=== PATIENT | male | born 1930 | race Caucasian/White ===

== ENCOUNTER 2017-10-18 16:26 | Inpatient (IN) | payer MEDICARE, OTHER ==
[~2017-10-18] VITALS: Ht 182.9 cm; Wt 114.5 kg
[2017-10-18] VITALS (7 sets, daily range): BP systolic 123–147; BP diastolic 63–79; PULSE 76–85; RESP 16–20; TEMP 98.7; O2SAT 95–99
[~2017-10-18 16:26] MED LIST: ALLO100T PO; ASPI1TAB69 PO; ATOR40TA16 PO; FURO1TAB60 PO; LISI10TA3 PO; METO50TA PO; TAMS5CAP PO
--- NOTE | 2017-10-18 16:59 | PD ---
HPI Chief Complaint: General Weakness Time Seen by Provider: 16:51 Travel History International Travel<30 days: No Contact w/Intl Traveler<30days: No Traveled to known affect area: No History of Present Illness HPI Apparently patient was previously admitted to [facility] for bradycardia down to the 30s, he was discharged and advised to decrease his metoprolol from 75 mg down to currently 25 mg. Patient was also started on Eliquis upon discharge. Apparently today earlier on about 2 or 3:00 in the afternoon his home health nurse was present and noticed that he is heart rate was dipping down to the 30s and he was expressing some complain of weakness and apparently left facial droop and left upper extremity weakness which has since fully resolved now... No known drug allergy Primary care physician is Dr. Xenia PARRISH Flexible Nanny is Dr. Jr Terry Patient's past medical history includes aortic valve replacement bovine, stents , congestive heart failure, hypertension, hypercholesterolemia Past surgical history includes right shoulder, cystoscopy, aortic valve replacement, tonsillectomy and adenoidectomy inguinal hernia repair PFSH Past Medical History Hx Anticoagulant Therapy: Yes (325MG ASA) Arthritis: Yes Autoimmune Disease: No Blood Disorders: No Heart Rhythm Problems: Yes Cancer: No Cardiovascular Problems: Yes (HTN; AORTIC VALVE REPLACEMENT; STENTS) High Cholesterol: Yes Congestive Heart Failure: Yes Diabetes: No Diminished Hearing: No Endocrine: No Glaucoma: No Genitourinary: Yes (CYSTOSCOPY) Hepatitis: No Hiatal Hernia: No Hypertension: Yes Immune Disorder: No Implanted Vascular Access Dvce: No Musculoskeletal: Yes Neurologic: No Psychiatric: No Reproductive: No Respiratory: No Immunizations Current: Yes Thyroid Disease: No Past Surgical History Abdominal Surgery: Yes (ING HERNIA & UMBILICAL HERNIA REP.) Body Medical Devices: AORTIC VALVE Cardiac Surgery: Yes (AVR, STENTS) Ear Surgery: No Endocrine Surgery: No Eye Surgery: No Genitourinary Surgery: Yes (CYSTOSCOPY) Gynecologic Surgery: No Joint Replacement: Yes Oral Surgery: Yes (TONSILLECTOMY AND ADENOIDS REMOVED) Pacemaker: No Thoracic Surgery: No Tonsillectomy: Yes Other Surgery: Yes Social History Alcohol Use: No Tobacco Use: Yes (QUIT LONG AGO (1973)) Substance Use: No Allergies-Medications (Allergen,Severity, Reaction): Coded Allergies: No Known Allergies (Verified , 11/02/15) Reported Meds & Prescriptions Reported Meds & Active Scripts Active Reported Remeron (Mirtazapine) 15 Mg Tab 15 Mg PO HS Melatonin 3 Mg Tab 3 Mg PO HS Hydrocodone-Acetamin 5-325 mg (Hydrocodone/Acetaminophen) 5 Mg-325 Mg Tablet 1 Tab PO Q4-6H PRN Demadex (Torsemide) 20 Mg Tab 20 Mg PO DAILY Potassium Chloride ER (Potassium Chloride) 10 Meq Tab 10 Meq PO BID Ferrous Sulfate 325 Mg (65 Mg Iron) Tablet 325 Mg PO DAILY Amaryl (Glimepiride) 1 Mg Tab 1 Mg PO DAILY Take with breakfast or first main meal Proscar (Finasteride) 5 Mg Tab 5 Mg PO DAILY Do not crush. Trazodone (Trazodone HCl) 150 Mg Tablet 150 Mg PO HS Tamsulosin (Tamsulosin HCl) 0.4 Mg Cap 0.4 Mg PO HS Metoprolol Tartrate 25 Mg Tab 25 Mg PO BID Eliquis (Apixaban) 5 Mg Tab 5 Mg PO BID Multiple Vitamin 1 Tab 1 Tab PO DAILY Aspirin 325 Mg Tab 325 Mg PO DAILY Tylenol (Acetaminophen) 325 Mg Tab 650 Mg PO Q4H PRN Allopurinol 100 Mg Tab 100 Mg PO DAILY Atorvastatin (Atorvastatin Calcium) 40 Mg Tab 40 Mg PO HS Review of Systems General / Constitutional: No: Fever Eyes: No: Visual changes HENT: Positive: Lightheadedness Cardiovascular: No: Chest Pain or Discomfort Respiratory: No: Shortness of Breath Gastrointestinal: No: Abdominal Pain Genitourinary: No: Dysuria Musculoskeletal: No: Pain Skin: No Rash Neurologic: Positive: Other (Left-sided facial droop) Psychiatric: No: Depression Endocrine: No: Polydipsia Hematologic/Lymphatic: No: Easy Bruising Physical Exam Narrative GENERAL: SKIN: Warm and dry. HEAD: Atraumatic. Normocephalic. EYES: Pupils equal and round. No scleral icterus. No injection or drainage. ENT: No nasal bleeding or discharge. Mucous membranes pink and moist. NECK: Trachea midline. No JVD. CARDIOVASCULAR: Irregular rate and rhythm. RESPIRATORY: No accessory muscle use. Clear to auscultation. Breath sounds equal bilaterally. GASTROINTESTINAL: Abdomen soft, non-tender, nondistended. MUSCULOSKELETAL: Extremities without clubbing, cyanosis, or edema. No obvious deformities. NEUROLOGICAL: Awake and alert. No obvious cranial nerve deficits. Motor grossly within normal limits. Five out of 5 muscle strength in the arms and legs. Normal speech. PSYCHIATRIC: Appropriate mood and affect; insight and judgment normal. Data Data Last Documented VS Vital Signs Date Time Temp Pulse Resp B/P (MAP) Pulse Ox O2 Delivery O2 Flow Rate FiO2 10/18/17 16:54 77 18 97 Nasal Cannula 2.00 10/18/17 16:38 98.7 147/65 (92) Orders Orders Electrocardiogram (10/18/17 ) Electrocardiogram (10/18/17 16:52) Prothrombin Time / Inr (Pt) (10/18/17 16:52) Act Partial Throm Time (Ptt) (10/18/17 16:52) Complete Blood Count With Diff (10/18/17 16:52) Comprehensive Metabolic Panel (10/18/17 16:52) Troponin I (10/18/17 16:52) Urinalysis - C+S If Indicated (10/18/17 16:52) Ct Brain W/O Iv Contrast(Rout) (10/18/17 16:52) Chest, Single Ap (10/18/17 16:52) Ecg Monitoring (10/18/17 16:52) Iv Access Insert/Monitor (10/18/17 16:52) Oximetry (10/18/17 16:52) Sodium Chloride 0.9% Flush (Ns Flush) (10/18/17 17:00) Labs Laboratory Tests Test 10/18/17 16:58 10/18/17 17:08 10/18/17 17:53 White Blood Count 5.9 TH/MM3 Red Blood Count 3.18 MIL/MM3 Hemoglobin 10.7 GM/DL Hematocrit 31.8 % Mean Corpuscular Volume 100.0 FL Mean Corpuscular Hemoglobin 33.5 PG Mean Corpuscular Hemoglobin Concent 33.5 % Red Cell Distribution Width 15.8 % Platelet Count 150 TH/MM3 Mean Platelet Volume 9.5 FL Neutrophils (%) (Auto) 65.0 % Lymphocytes (%) (Auto) 18.9 % Monocytes (%) (Auto) 11.9 % Eosinophils (%) (Auto) 3.7 % Basophils (%) (Auto) 0.5 % Neutrophils # (Auto) 3.8 TH/MM3 Lymphocytes # (Auto) 1.1 TH/MM3 Monocytes # (Auto) 0.7 TH/MM3 Eosinophils # (Auto) 0.2 TH/MM3 Basophils # (Auto) 0.0 TH/MM3 CBC Comment DIFF FINAL Differential Comment Prothrombin Time 12.6 SEC Prothromb Time International Ratio 1.2 RATIO Activated Partial Thromboplast Time 26.7 SEC Urine Color LIGHT-YELLOW Urine Turbidity CLEAR Urine pH 5.5 Urine Specific [place] 1.011 Urine Protein NEG mg/dL Urine Glucose (UA) NEG mg/dL Urine Ketones NEG mg/dL Urine Occult Blood NEG Urine Nitrite NEG Urine Bilirubin NEG Urine Urobilinogen LESS THAN 2.0 MG/DL Urine Leukocyte Esterase SMALL Urine RBC LESS THAN 1 /hpf Urine WBC 2 /hpf Urine Hyaline Casts 1 /lpf Microscopic Urinalysis Comment CATH-CULT NOT IND MDM Medical Decision Making Medical Screen Exam Complete: Yes Emergency Medical Condition: Yes Medical Record Reviewed: Yes Interpretation(s) EKG shows atrial fibrillation with PVCs, estimated rate 76, noted T-wave inversions in 1 and aVL however no ST elevation VT pattern noted Differential Diagnosis TIA versus CVA versus intracranial hemorrhage versus symptomatic bradycardia Narrative Course CBC does not show any evidence of leukocytosis, mild anemia of 10/32, normal platelet count, and no left shift. Coagulation profile is within normal limits Cath urinalysis is negative for any evidence of UTI Currently chemistry are pending. Also CT head is pending patient will be signed out to incoming physician in the ER pending CT chemistry and am recommending admission for TIA workup as well as chest pain rule out workup due to his episode of bradycardia. Chest x-ray is read as no acute disease by radiologist Diagnosis Primary Impression: TIA Admitting Information Admitting Physician Requests: Observation Ponce Hanks MD Oct 18, 2017 16:59
[2017-10-18] MEDS ORDERED: SODIUM CHLORIDE 0.9% FLUSH 10 ML FLUSH IVF PRN (17:00)
[2017-10-18] MEDS ORDERED: ASPI-183 PO (17:11)
[2017-10-18] MEDS ORDERED: PROS5TAB PO (17:11)
[2017-10-18] MEDS ORDERED: TYLE325T PO (17:11)
[2017-10-18] MEDS ORDERED: MELA3TAB52 PO (17:11)
[2017-10-18] MEDS ORDERED: METO25TA3 PO (17:11)
[2017-10-18] MEDS ORDERED: APIX5TAB PO (17:11)
[2017-10-18] MEDS ORDERED: GLIM1 PO (17:11)
[2017-10-18] MEDS ORDERED: FERR325T18 PO (17:11)
[2017-10-18] MEDS ORDERED: POTA10TA2 PO (17:11)
[2017-10-18] MEDS ORDERED: HYDR-3516 PO (17:11)
[2017-10-18] MEDS ORDERED: MULTTAB67 PO (17:11)
[2017-10-18] MEDS ORDERED: TORS1TAB12 PO (17:11)
[2017-10-18] MEDS ORDERED: TAMS0.4C4 PO (17:11)
[2017-10-18] MEDS ORDERED: TRAZ1TAB14 PO (17:11)
[2017-10-18] MEDS ORDERED: REME15TA PO (17:12)
[2017-10-18 17:15] LABS: AUTOMATED NEUTROPHIL # 3.8 TH/MM3 (1.8-7.7); BASOPHIL % 0.5 % (0.0-2.0); EOSINOPHIL # 0.2 TH/MM3 (0-0.4); EOSINOPHIL % 3.7 % (0.0-4.0); HEMATOCRIT 31.8 % (39.0-51.0); HEMOGLOBIN 10.7 GM/DL (13.0-17.0); LYMPH % 18.9 % (9.0-44.0); LYMPHOCYTE # 1.1 TH/MM3 (1.0-4.8); MEAN CORPUSCULAR HEMOGLOBIN 33.5 PG (27.0-34.0); MEAN CORPUSCULAR HGB CONC 33.5 % (32.0-36.0); MEAN PLATELET VOLUME 9.5 FL (7.0-11.0); MONO % 11.9 % (0.0-8.0); MONOCYTE # 0.7 TH/MM3 (0-0.9); PLATELET COUNT 150 TH/MM3 (150-450); RED BLOOD COUNT 3.18 MIL/MM3 (4.50-5.90); RED CELL DISTRIBUTION WIDTH 15.8 % (11.6-17.2); WHITE BLOOD COUNT 5.9 TH/MM3 (4.0-11.0)
[2017-10-18 17:31] LABS: BILIRUBIN, URINE NEG (NEG); BLOOD, URINE NEG (NEG); GLUCOSE,URINE NEG (NEG); HYALINE CAST, URINE 1 /lpf (RARE); KETONE, URINE NEG (NEG); NITRITE,URINE NEG (NEG); PH, URINE 5.5 (5.0-8.5); URINE COLOR LIGHT-YELLOW (YELLW/STRAW); URINE LEUKOCYTE ESTERASE SMALL (NEG)
--- NOTE | 2017-10-18 17:33 | RADRPT ---
EXAM DATE/TIME: 10/18/2017 17:21 [facility] COMPARISON: CHEST SINGLE AP, November 02, 2015, 13:57. INDICATIONS : Short of breath. Bradycardia. MEDICAL HISTORY : None. SURGICAL HISTORY : Coronary artery stent. Aortic valve replacement ENCOUNTER: Initial ACUITY: 1 day PAIN SCORE: 0/10 LOCATION: Bilateral chest. FINDINGS: Cardiomegaly and sternotomy wires are noted. There is no definite consolidation or effusion. High rid ing humeral heads are noted bilaterally with associated degenerative changes consistent with rotator cuff tears. CONCLUSION: No acute disease. Adonis Rubio MD on October 18, 2017 at 17:31 Board Certified Radiologist. This report was verified electronically.
[2017-10-18 17:36] LABS: INTERNATIONAL NORMALIZED RATIO 1.2 RATIO; PROTHROMBIN TIME - PATIENT 12.6 SEC (9.8-11.6)
[2017-10-18 18:41] LABS: ALBUMIN 3.3 GM/DL (3.4-5.0); ALT (GPT) 17 U/L (12-78); AST (GOT) 15 U/L (15-37); BICARBONATE 31.4 MEQ/L (21.0-32.0); BLOOD UREA NITROGEN 33 MG/DL (7-18); CALCIUM 8.9 MG/DL (8.5-10.1); CHLORIDE 105 MEQ/L (98-107); CREATININE 1.85 MG/DL (0.60-1.30); GLOMERULAR FILTRATION RATE 35 ML/MIN (>89); GLUCOSE,RANDOM 103 MG/DL (74-106); SODIUM (NA) 143 MEQ/L (136-145)
[2017-10-18 18:45] LABS: ALKALINE PHOSPHATASE 92 U/L (45-117); TOTAL BILIRUBIN ADULT 0.4 MG/DL (0.2-1.0); TOTAL PROTEIN 6.4 GM/DL (6.4-8.2); TROPONIN I 0.07 NG/ML (0.02-0.05)
--- NOTE | 2017-10-18 19:29 | RADRPT ---
EXAM DATE/TIME: 10/18/2017 18:44 [facility] COMPARISON: CT BRAIN W/O CONTRAST, June 25, 2016, 11:12. INDICATIONS : Slurred speech and bradycardia. RADIATION DOSE: 49.61 CTDIvol (mGy) MEDICAL HISTORY : Cardiovascular disease. Congestive heart failure. Hypertension. SURGICAL HISTORY : Cystoscopy, adenoids removed ENCOUNTER: Initial ACUITY: 1 day PAIN SCALE: 0/10 LOCATION: cranial TECHNIQUE: Multiple contiguous axial images were obtained of the head. Using automated exposure control and adj ustment of the mA and/or kV according to patient size, radiation dose was kept as low as reasonably a chievable to obtain optimal diagnostic quality images. DICOM format image data is available electro nically for review and comparison. FINDINGS: Remote right caudate lacunar infarct, atrophy and mild periventricular white matter disease again not ed. No fractures. Calcifications of the vertebral arteries and internal carotid arteries are noted. T here are no signs of acute infarct, hemorrhage, or mass. CONCLUSION: No significant change has occurred. Adonis Rubio MD on October 18, 2017 at 19:27 Board Certified Radiologist. This report was verified electronically.
--- NOTE | 2017-10-18 19:49 | PD ---
Data Data Last Documented VS Vital Signs Date Time Temp Pulse Resp B/P (MAP) Pulse Ox O2 Delivery O2 Flow Rate FiO2 10/18/17 19:39 76 20 142/71 (94) 95 Room Air 10/18/17 16:54 2.00 10/18/17 16:38 98.7 Orders Orders Electrocardiogram (10/18/17 ) Electrocardiogram (10/18/17 16:52) Prothrombin Time / Inr (Pt) (10/18/17 16:52) Act Partial Throm Time (Ptt) (10/18/17 16:52) Complete Blood Count With Diff (10/18/17 16:52) Comprehensive Metabolic Panel (10/18/17 16:52) Troponin I (10/18/17 16:52) Urinalysis - C+S If Indicated (10/18/17 16:52) Ct Brain W/O Iv Contrast(Rout) (10/18/17 16:52) Chest, Single Ap (10/18/17 16:52) Ecg Monitoring (10/18/17 16:52) Iv Access Insert/Monitor (10/18/17 16:52) Oximetry (10/18/17 16:52) Sodium Chloride 0.9% Flush (Ns Flush) (10/18/17 17:00) Admit Order (Ed Use Only) (10/18/17 19:46) Labs Laboratory Tests Test 10/18/17 16:58 10/18/17 17:08 10/18/17 17:53 White Blood Count 5.9 TH/MM3 Red Blood Count 3.18 MIL/MM3 Hemoglobin 10.7 GM/DL Hematocrit 31.8 % Mean Corpuscular Volume 100.0 FL Mean Corpuscular Hemoglobin 33.5 PG Mean Corpuscular Hemoglobin Concent 33.5 % Red Cell Distribution Width 15.8 % Platelet Count 150 TH/MM3 Mean Platelet Volume 9.5 FL Neutrophils (%) (Auto) 65.0 % Lymphocytes (%) (Auto) 18.9 % Monocytes (%) (Auto) 11.9 % Eosinophils (%) (Auto) 3.7 % Basophils (%) (Auto) 0.5 % Neutrophils # (Auto) 3.8 TH/MM3 Lymphocytes # (Auto) 1.1 TH/MM3 Monocytes # (Auto) 0.7 TH/MM3 Eosinophils # (Auto) 0.2 TH/MM3 Basophils # (Auto) 0.0 TH/MM3 CBC Comment DIFF FINAL Differential Comment Prothrombin Time 12.6 SEC Prothromb Time International Ratio 1.2 RATIO Activated Partial Thromboplast Time 26.7 SEC Urine Color LIGHT-YELLOW Urine Turbidity CLEAR Urine pH 5.5 Urine Specific [place] 1.011 Urine Protein NEG mg/dL Urine Glucose (UA) NEG mg/dL Urine Ketones NEG mg/dL Urine Occult Blood NEG Urine Nitrite NEG Urine Bilirubin NEG Urine Urobilinogen LESS THAN 2.0 MG/DL Urine Leukocyte Esterase SMALL Urine RBC LESS THAN 1 /hpf Urine WBC 2 /hpf Urine Hyaline Casts 1 /lpf Microscopic Urinalysis Comment CATH-CULT NOT IND Blood Urea Nitrogen 33 MG/DL Creatinine 1.85 MG/DL Random Glucose 103 MG/DL Total Protein 6.4 GM/DL Albumin 3.3 GM/DL Calcium Level 8.9 MG/DL Alkaline Phosphatase 92 U/L Aspartate Amino Transf (AST/SGOT) 15 U/L Alanine Aminotransferase (ALT/SGPT) 17 U/L Total Bilirubin 0.4 MG/DL Sodium Level 143 MEQ/L Potassium Level 4.8 MEQ/L Chloride Level 105 MEQ/L Carbon Dioxide Level 31.4 MEQ/L Anion Gap 7 MEQ/L Estimat Glomerular Filtration Rate 35 ML/MIN Troponin I 0.07 NG/ML MDM Supervised Visit with KADI: No Narrative Course The patient was initially evaluated by the previous provider and signed out to me at the beginning of my shift pending CT head and admission. He has no further details. Briefly this is an 87-year-old male with history of CHF, bovine aortic valve, hypertension, metoprolol, on Eliquis, brought in by indolence from home for an episode of bradycardia with a heart rate in the 30s with associated left facial droop and left arm weakness. By the time the patient arrived to the emergency department his heart rate was in the 60s-70s and his neuro deficits have resolved. Vital signs show heart rate 79, blood pressure 147/65, pulse ox 99% on 2 L nasal cannula, oral temperature 98.7F. CBC: WBC 5.9, hemoglobin 10.7, hematocrit 31.8, platelets 150. CMP is remarkable for BUN 33, creatinine 125, GFR 35 which is around his baseline. Troponin is 0.07. The patient denies chest pain. Chest x-ray shows no acute disease. CT head shows no significant change. Case discussed with hospitalist Dr. Paz who will admit the patient to her service for further cardiac monitoring for bradycardia as well as TIA workup. The patient and the patient's family were made aware of all findings and on my assessment he is sitting comfortably on a chair in no acute distress without any neuro deficits. Diagnosis Primary Impression: TIA Additional Impression: Bradycardia Admitting Information Admitting Physician Requests: Observation Serge Berry MD Oct 18, 2017 19:49
[2017-10-18] MEDS ORDERED: SENNOSIDES 8.6 MG TAB PO PRN (20:00)
[2017-10-18] MEDS ORDERED: MAGNESIUM HYDROXIDE SUSP 30 ML CUP PO PRN (20:00)
[2017-10-18] MEDS ORDERED: ACETAMINOPHEN 325 MG TAB PO PRN (20:00)
[2017-10-18] MEDS ORDERED: ACETAMINOPHEN/HYDROcodone 325 MG/5 MG TAB PO PRN (20:00)
[2017-10-18] MEDS ORDERED: LACTULOSE SYRUP 20 GM/30 ML CUP PO PRN (20:00)
[2017-10-18] MEDS ORDERED: ONDANSETRON HCL 4 MG/2 ML VIAL IVP PRN (20:00)
[2017-10-18] MEDS ORDERED: SODIUM CHLORIDE 0.9% FLUSH 10 ML FLUSH IV FLUSH PRN (20:00)
[2017-10-18] MEDS ORDERED: BISACODYL 10 MG SUPP RECTAL PRN (20:00)
[2017-10-18] MEDS ORDERED: MORPHINE SULFATE 2 MG/ML INJ IV PUSH PRN (20:00)
--- NOTE | 2017-10-18 20:01 | HHI.HP ---
[facility]-Staff Admission Diagnosis TIA, Sinus Bradycardia Diagnoses: Travel History International Travel<30 Days: No Contact w/Intl Traveler <30 Da: No Traveled to Known Affected Are: No Past Family Social History Allergies: Coded Allergies: No Known Allergies (Verified , 11/02/15) Physical Exam Vital Signs Vital Signs Date Time Temp Pulse Resp B/P (MAP) Pulse Ox O2 Delivery O2 Flow Rate FiO2 10/18/17 19:39 76 20 142/71 (94) 95 Room Air 10/18/17 16:54 77 18 97 Nasal Cannula 2.00 10/18/17 16:54 97 Nasal Cannula 2.00 10/18/17 16:38 98.7 79 18 147/65 (92) 99 Physical Exam GENERAL: This is a well-nourished, well-developed patient, in no apparent distress. SKIN: No rashes, ecchymoses or lesions. Cool and dry. HEAD: Atraumatic. Normocephalic. No temporal or scalp tenderness. EYES: Pupils equal round and reactive. Extraocular motions intact. No scleral icterus. No injection or drainage. ENT: Nose without bleeding, purulent drainage or septal hematoma. Throat without erythema, tonsillar hypertrophy or exudate. Uvula midline. Airway patent. NECK: Trachea midline. No JVD or lymphadenopathy. Supple, nontender, no meningeal signs. CARDIOVASCULAR: Regular rate and rhythm without murmurs, gallops, or rubs. RESPIRATORY: Clear to auscultation. Breath sounds equal bilaterally. No wheezes , rales, or rhonchi. GASTROINTESTINAL: Abdomen soft, non-tender, nondistended. No hepato-splenomegaly , or palpable masses. No guarding. MUSCULOSKELETAL: Extremities without clubbing, cyanosis, or edema. No joint tenderness, effusion, or edema noted. No calf tenderness. Negative Homans sign bilaterally. NEUROLOGICAL: Awake and alert. Cranial nerves II through XII intact. Motor and sensory grossly within normal limits. Five out of 5 muscle strength in all muscle groups. Normal speech. Laboratory Laboratory Tests Test 10/18/17 16:58 10/18/17 17:08 10/18/17 17:53 White Blood Count 5.9 Red Blood Count 3.18 Hemoglobin 10.7 Hematocrit 31.8 Mean Corpuscular Volume 100.0 Mean Corpuscular Hemoglobin 33.5 Mean Corpuscular Hemoglobin Concent 33.5 Red Cell Distribution Width 15.8 Platelet Count 150 Mean Platelet Volume 9.5 Neutrophils (%) (Auto) 65.0 Lymphocytes (%) (Auto) 18.9 Monocytes (%) (Auto) 11.9 Eosinophils (%) (Auto) 3.7 Basophils (%) (Auto) 0.5 Neutrophils # (Auto) 3.8 Lymphocytes # (Auto) 1.1 Monocytes # (Auto) 0.7 Eosinophils # (Auto) 0.2 Basophils # (Auto) 0.0 CBC Comment DIFF FINAL Differential Comment Prothrombin Time 12.6 Prothromb Time International Ratio 1.2 Activated Partial Thromboplast Time 26.7 Urine Color LIGHT-YELLOW Urine Turbidity CLEAR Urine pH 5.5 Urine Specific [place] 1.011 Urine Protein NEG Urine Glucose (UA) NEG Urine Ketones NEG Urine Occult Blood NEG Urine Nitrite NEG Urine Bilirubin NEG Urine Urobilinogen LESS THAN 2.0 Urine Leukocyte Esterase SMALL Urine RBC LESS THAN 1 Urine WBC 2 Urine Hyaline Casts 1 Microscopic Urinalysis Comment CATH-CULT NOT IND Blood Urea Nitrogen 33 Creatinine 1.85 Random Glucose 103 Total Protein 6.4 Albumin 3.3 Calcium Level 8.9 Alkaline Phosphatase 92 Aspartate Amino Transf (AST/SGOT) 15 Alanine Aminotransferase (ALT/SGPT) 17 Total Bilirubin 0.4 Sodium Level 143 Potassium Level 4.8 Chloride Level 105 Carbon Dioxide Level 31.4 Anion Gap 7 Estimat Glomerular Filtration Rate 35 Troponin I 0.07 Result Diagram: 10/18/17 1658 10/18/17 1753 Caprini VTE Risk Assessment Caprini Risk Assessment Model Point Value = 1 Point Value = 2 Point Value = 3 Point Value = 5 Age 41-60 Minor surgery BMI > 25 kg/m2 Swollen legs Varicose veins or History of unexplained or recurrent spontaneous Oral contraceptives or hormone replacement Sepsis (< 1 month) Serious lung disease, including pneumonia (< 1 month) Abnormal pulmonary function Acute myocardial infarction Congestive heart failure (< 1 month) History of inflammatory bowel disease Medical patient at bed rest Age 61-74 Arthroscopic surgery Major open surgery (> 45 min) Laparoscopic surgery (> 45 min) Malignancy Confined to bed (> 72 hours) Immobilizing plaster cast Central venous access Age >= 75 History of VTE Family history of VTE Factor V Leiden Prothrombin [id number] Lupus anticoagulant Anticardiolipin antibodies Elevated serum homocysteine Heparin-induced thrombocytopenia Other congenital or acquired thrombophilia Stroke (< 1 month) Elective arthroplasty Hip, pelvis, or leg fracture Acute spinal cord injury (< 1 month) Prophylaxis Regimen Total Risk Factor Score Risk Level Prophylaxis Regimen 0-1 Low Early ambulation 2 Moderate Order ONE of the following: *Sequential Compression Device (SCD) *Heparin 5000 units SQ BID 3-4 Higher Order ONE of the following medications: *Heparin 5000 units SQ TID *Enoxaparin/Lovenox 40 mg SQ daily (WT < 150 kg, CrCl > 30 mL/min) *Enoxaparin/Lovenox 30 mg SQ daily (WT < 150 kg, CrCl > 10-29 mL/min) *Enoxaparin/Lovenox 30 mg SQ BID (WT < 150 kg, CrCl > 30 mL/min) AND/OR *Sequential Compression Device (SCD) 5 or more Highest Order ONE of the following medications: *Heparin 5000 units SQ TID (Preferred with Epidurals) *Enoxaparin/Lovenox 40 mg SQ daily (WT < 150 kg, CrCl > 30 mL/min) *Enoxaparin/Lovenox 30 mg SQ daily (WT < 150 kg, CrCl > 10-29 mL/min) *Enoxaparin/Lovenox 30 mg SQ BID (WT < 150 kg, CrCl > 30 mL/min) AND *Sequential Compression Device (SCD) Ashlie Paz MD Oct 18, 2017 20:01
[2017-10-18] MEDS: MELATONIN 5 MG TAB PO SCH (21:00)
[2017-10-18] MEDS: SODIUM CHLORIDE 0.9% FLUSH 10 ML FLUSH IV FLUSH SCH (21:08)
[2017-10-18] MEDS: TAMSULOSIN HCL 0.4 MG CAP PO SCH (21:09)
[2017-10-18] MEDS: DOCUSATE SODIUM 50 MG/SENNA 8.6 MG TAB PO SCH (21:09)
[2017-10-18] MEDS: ATORVASTATIN 40 MG TAB PO SCH (21:09)
[2017-10-18] MEDS: APIXABAN 5 MG TABLET PO SCH (21:09)
[2017-10-18] MEDS: MIRTAZAPINE 15 MG TAB PO SCH (21:09)
--- NOTE | 2017-10-18 21:17 | HHI.HP ---
[facility] Service [facility] Primary Care Physician Non-Staff Admission Diagnosis TIA, Sinus Bradycardia Diagnoses: (1) Bradycardia Diagnosis: Principal (2) TIA (transient ischemic attack) Diagnosis: Principal (3) Elevated troponin Diagnosis: Principal (4) CHF (congestive heart failure) Diagnosis: Principal (5) Renal insufficiency Diagnosis: Principal (6) DM (diabetes mellitus) Diagnosis: Principal Travel History International Travel<30 Days: No Contact w/Intl Traveler <30 Da: No Traveled to Known Affected Are: No History of Present Illness This is an 87-year-old male with a PMH of HTN, Hyperlipidemia, AVR, Afib on Eliquis, CHF (Echo 11/03/15 w/ EF 40-45%) and CAD who was referred to the ER by [facility] RN for bradycardia w/ HR 30's. Also reported to have episode of facial droop, slurred speech and generalized weakness, now completely resolved. [facility] for similar episode of bradycardia. Able to obtain records from which I reviewed personally. Follows w/ Dr. Terry, seen by Dr. Aguayo during that admission, had minimally elevated Trop 0.06, Echo 10/15/17 w/ EF 50-55%, bradycardia thought to be due to Metoprolol, dosage decreased from 75mg bid to 25mg bid. Family states that pt was seen yesterday by PCP, HR 40-50's and Metoprolol decreased further to 12.5mg bid. Today, noted to have HR 30's as above. No chest pain, SOB or cough. Does note worsening lower extremity edema bilaterally. On arrival, BP 147/65, HR 79, O2 sat 99% on RA, Afebrile. HR has remained in the 70s to 80s while in ER. CBC at baseline. Creatinine 1.85, producing 1.49 on 11/05/15. Troponin 0.07. INR 1.2. UA negative. CXR with no acute findings. CT Head negative. Review of Systems Except as stated in HPI: all other systems reviewed are Neg ROS: 14 point review of systems otherwise negative. Past Family Social History Past Medical History PMH: HTN, Hyperlipidemia, AVR, Afib on Eliquis, CHF (Echo 11/03/15 w/ EF 40-45% ) and CAD Past Surgical History PAST SURGICAL HISTORY: Inguinal Hernia Repair, Bovine Aortic Valve, Cardiac Stent, Cystoscopy, Joint Replacement, Tonsillectomy Allergies: Coded Allergies: No Known Allergies (Verified , 11/02/15) Family History PAST FAMILY HISTORY: Reviewed. No h/o DM or CAD Social History PAST SOCIAL HISTORY: Negative for alcohol, tobacco or drugs. Physical Exam Vital Signs Vital Signs Date Time Temp Pulse Resp B/P (MAP) Pulse Ox O2 Delivery O2 Flow Rate FiO2 10/18/17 20:32 85 18 134/79 (97) 95 Room Air 10/18/17 19:39 76 20 142/71 (94) 95 Room Air 10/18/17 16:54 77 18 97 Nasal Cannula 2.00 10/18/17 16:54 97 Nasal Cannula 2.00 10/18/17 16:38 98.7 79 18 147/65 (92) 99 Physical Exam PE: GENERAL: Very pleasant elderly white male in no acute distress. Family at bedside. HEENT: PERRLA, EOMI. No scleral icterus or conjunctival pallor. No lid lag or facial droop. CARDIOVASCULAR: Irregularly irregular, HR 70's. No obvious murmurs to auscultation. No chest tenderness to palpation. RESPIRATORY: No obvious rhonchi or wheezing. Clear to auscultation. Breath sounds equal bilaterally. GASTROINTESTINAL: Abdomen soft, non-tender, nondistended. BS normal. MUSCULOSKELETAL: Extremities without clubbing, cyanosis. +2-3 edema bilaterally. No obvious deformities. NEUROLOGICAL: Awake, alert and oriented x4. No focal neurologic deficits. Moving both upper and lower extremities spontaneously. Laboratory Laboratory Tests Test 10/18/17 16:58 10/18/17 17:08 10/18/17 17:53 White Blood Count 5.9 Red Blood Count 3.18 Hemoglobin 10.7 Hematocrit 31.8 Mean Corpuscular Volume 100.0 Mean Corpuscular Hemoglobin 33.5 Mean Corpuscular Hemoglobin Concent 33.5 Red Cell Distribution Width 15.8 Platelet Count 150 Mean Platelet Volume 9.5 Neutrophils (%) (Auto) 65.0 Lymphocytes (%) (Auto) 18.9 Monocytes (%) (Auto) 11.9 Eosinophils (%) (Auto) 3.7 Basophils (%) (Auto) 0.5 Neutrophils # (Auto) 3.8 Lymphocytes # (Auto) 1.1 Monocytes # (Auto) 0.7 Eosinophils # (Auto) 0.2 Basophils # (Auto) 0.0 CBC Comment DIFF FINAL Differential Comment Prothrombin Time 12.6 Prothromb Time International Ratio 1.2 Activated Partial Thromboplast Time 26.7 Urine Color LIGHT-YELLOW Urine Turbidity CLEAR Urine pH 5.5 Urine Specific [place] 1.011 Urine Protein NEG Urine Glucose (UA) NEG Urine Ketones NEG Urine Occult Blood NEG Urine Nitrite NEG Urine Bilirubin NEG Urine Urobilinogen LESS THAN 2.0 Urine Leukocyte Esterase SMALL Urine RBC LESS THAN 1 Urine WBC 2 Urine Hyaline Casts 1 Microscopic Urinalysis Comment CATH-CULT NOT IND Blood Urea Nitrogen 33 Creatinine 1.85 Random Glucose 103 Total Protein 6.4 Albumin 3.3 Calcium Level 8.9 Alkaline Phosphatase 92 Aspartate Amino Transf (AST/SGOT) 15 Alanine Aminotransferase (ALT/SGPT) 17 Total Bilirubin 0.4 Sodium Level 143 Potassium Level 4.8 Chloride Level 105 Carbon Dioxide Level 31.4 Anion Gap 7 Estimat Glomerular Filtration Rate 35 Troponin I 0.07 Result Diagram: 10/18/17 1658 10/18/17 1753 Caprini VTE Risk Assessment Caprini VTE Risk Assessment: Mod/High Risk (score >= 2) Caprini Risk Assessment Model Point Value = 1 Point Value = 2 Point Value = 3 Point Value = 5 Age 41-60 Minor surgery BMI > 25 kg/m2 Swollen legs Varicose veins or History of unexplained or recurrent spontaneous Oral contraceptives or hormone replacement Sepsis (< 1 month) Serious lung disease, including pneumonia (< 1 month) Abnormal pulmonary function Acute myocardial infarction Congestive heart failure (< 1 month) History of inflammatory bowel disease Medical patient at bed rest Age 61-74 Arthroscopic surgery Major open surgery (> 45 min) Laparoscopic surgery (> 45 min) Malignancy Confined to bed (> 72 hours) Immobilizing plaster cast Central venous access Age >= 75 History of VTE Family history of VTE Factor V Leiden Prothrombin [id number] Lupus anticoagulant Anticardiolipin antibodies Elevated serum homocysteine Heparin-induced thrombocytopenia Other congenital or acquired thrombophilia Stroke (< 1 month) Elective arthroplasty Hip, pelvis, or leg fracture Acute spinal cord injury (< 1 month) Prophylaxis Regimen Total Risk Factor Score Risk Level Prophylaxis Regimen 0-1 Low Early ambulation 2 Moderate Order ONE of the following: *Sequential Compression Device (SCD) *Heparin 5000 units SQ BID 3-4 Higher Order ONE of the following medications: *Heparin 5000 units SQ TID *Enoxaparin/Lovenox 40 mg SQ daily (WT < 150 kg, CrCl > 30 mL/min) *Enoxaparin/Lovenox 30 mg SQ daily (WT < 150 kg, CrCl > 10-29 mL/min) *Enoxaparin/Lovenox 30 mg SQ BID (WT < 150 kg, CrCl > 30 mL/min) AND/OR *Sequential Compression Device (SCD) 5 or more Highest Order ONE of the following medications: *Heparin 5000 units SQ TID (Preferred with Epidurals) *Enoxaparin/Lovenox 40 mg SQ daily (WT < 150 kg, CrCl > 30 mL/min) *Enoxaparin/Lovenox 30 mg SQ daily (WT < 150 kg, CrCl > 10-29 mL/min) *Enoxaparin/Lovenox 30 mg SQ BID (WT < 150 kg, CrCl > 30 mL/min) AND *Sequential Compression Device (SCD) Assessment and Plan Problem List: (1) Bradycardia ICD Code: R00.1 - Bradycardia, unspecified Status: Acute (2) TIA (transient ischemic attack) ICD Code: G45.9 - Transient cerebral ischemic attack, unspecified (3) CHF (congestive heart failure) ICD Code: I50.9 - Heart failure, unspecified Status: Acute (4) Elevated troponin ICD Code: R74.8 - Abnormal levels of other serum enzymes (5) Renal insufficiency ICD Code: N28.9 - Disorder of kidney and ureter, unspecified (6) DM (diabetes mellitus) ICD Code: E11.9 - Type 2 diabetes mellitus without complications Assessment and Plan A/P: 1. Bradycardia: A-fib w/ SVR/Bradycardia. Recurrent. [facility] for same, s/p eval by Dr. Aguayo, Metoprolol decreased from 75mg bid to 25mg bid, now on 12.5mg bid since yesterday w/ persistent bradycardia. Records obtained from [facility] and reviewed by me personally, Echo 10/14/17 w/ EF 50-55%. Admit to [facility], telemetry, check serial cardiac enzymes to r/o underlying ischemia as etiology. Follows w/ Dr. Terry, will consult for further evaluation/recommendations. 2. CHF: Acute on Chronic. Systolic/Diastolic. Echo 10/14/17 w/ EF 50-55%, improved from previous Echo 11/03/15 w/ EF 40-45%. +lower extremity edema. CXR w/ no acute findings, images reviewed by me. Monitor I/O. Resume home diuresis. Resume home 3. Elevated Trop: Trop 0.07, EKG w/ no acute ischemia. No c/o chest pain, possibly related to combination of Dysrhythmia and CHF. Trop 0.06 per review of labs from [facility] on 10/14/17. Check serial cardiac enzymes to eval for underlying ischemia. NTG/Morphine as needed however no chest pain. 4. TIA: transient facial droop/weakness, now completely resolved, likely secondary to episode of bradycardia w/ hypoperfusion, however r/o TIA. CT Head w/ no acute findings, images reviewed by me. Check MRI Brain. Neuro checks q4h. Consult Neurology as needed for further recommendations. Resume home ASA , Statin. 5. Renal Insufficiency: Acute on Chronic. Creatinine 1.85, previously 1.49 on 11/05/15. Caution with IVF in light of CHF. Repeat labs in a.m. 6. DM: Sliding scale with Accu-Cheks. 7. DVT Prophylaxis: On Eliquis 8. Social work for d/c planning as needed. 9. Case discussed w/ ER physician at length, labs/records/imaging from here and [facility] reviewed by me. Physician Certification 2 Midnight Certification Type: Admission for Inpatient Services Order for Inpatient Services The services are ordered in accordance with Medicare regulations or non- Medicare payer requirements, as applicable. In the case of services not specified as inpatient-only, they are appropriately provided as inpatient services in accordance with the 2-midnight benchmark. Estimated LOS (days): 2 days is the estimated time the patient will need to remain in the hospital, assuming treatment plan goals are met and no additional complications. Post-Hospital Plan: Not yet determined Ashlie Paz MD Oct 18, 2017 21:17
[2017-10-19] VITALS (25 sets, daily range): BP systolic 115–149; BP diastolic 73–89; PULSE 74–96; RESP 18–20; TEMP 97.5–98; O2SAT 20–97
[2017-10-19] MEDS: MELATONIN 5 MG TAB PO SCH ×2 (01:20→21:44)
[2017-10-19 08:26] LABS: AUTOMATED NEUTROPHIL # 4.3 TH/MM3 (1.8-7.7); BASOPHIL % 0.6 % (0.0-2.0); EOSINOPHIL # 0.2 TH/MM3 (0-0.4); EOSINOPHIL % 2.9 % (0.0-4.0); HEMATOCRIT 31.7 % (39.0-51.0); HEMOGLOBIN 10.6 GM/DL (13.0-17.0); LYMPH % 16.4 % (9.0-44.0); MEAN CELL VOLUME 100.2 FL (80.0-100.0); MEAN CORPUSCULAR HEMOGLOBIN 33.4 PG (27.0-34.0); MEAN CORPUSCULAR HGB CONC 33.3 % (32.0-36.0); MONO % 11.3 % (0.0-8.0); MONOCYTE # 0.7 TH/MM3 (0-0.9); NEUT % 68.8 % (16.0-70.0); PLATELET COUNT 152 TH/MM3 (150-450); RED BLOOD COUNT 3.17 MIL/MM3 (4.50-5.90); RED CELL DISTRIBUTION WIDTH 15.8 % (11.6-17.2); WHITE BLOOD COUNT 6.2 TH/MM3 (4.0-11.0)
[2017-10-19] MEDS: APIXABAN 5 MG TABLET PO SCH ×2 (08:38→21:46)
[2017-10-19] MEDS: TORSEMIDE 20 MG TAB PO SCH (08:39)
[2017-10-19] MEDS: FINASTERIDE 5 MG TAB PO SCH (08:39)
[2017-10-19] MEDS: MULTIVITAMIN TAB PO SCH (08:39)
[2017-10-19] MEDS: DOCUSATE SODIUM 50 MG/SENNA 8.6 MG TAB PO SCH ×2 (08:39→21:00)
[2017-10-19] MEDS: SODIUM CHLORIDE 0.9% FLUSH 10 ML FLUSH IV FLUSH SCH ×2 (08:40→21:47)
[2017-10-19 08:57] LABS: ALBUMIN 3.2 GM/DL (3.4-5.0); ALT (GPT) 17 U/L (12-78); AST (GOT) 17 U/L (15-37); BICARBONATE 28.3 MEQ/L (21.0-32.0); BLOOD UREA NITROGEN 30 MG/DL (7-18); CALCIUM 9.3 MG/DL (8.5-10.1); CHLORIDE 106 MEQ/L (98-107); CREATININE 1.43 MG/DL (0.60-1.30); GLOMERULAR FILTRATION RATE 47 ML/MIN (>89); GLUCOSE,RANDOM 165 MG/DL (74-106); SODIUM (NA) 141 MEQ/L (136-145)
[2017-10-19] MEDS ORDERED: ASPIRIN 325 MG TAB PO SCH (09:00)
[2017-10-19 09:01] LABS: ALKALINE PHOSPHATASE 88 U/L (45-117); TOTAL BILIRUBIN ADULT 0.7 MG/DL (0.2-1.0); TOTAL PROTEIN 6.5 GM/DL (6.4-8.2); TROPONIN I 0.07 NG/ML (0.02-0.05)
--- NOTE | 2017-10-19 10:38 | RADRPT ---
EXAM DATE/TIME: 10/19/2017 10:09 [facility] COMPARISON: No previous studies available for comparison. INDICATIONS : Slurred speech. MEDICAL HISTORY : Hypertension. Renal insufficiency. SURGICAL HISTORY : Rotator cuff, right. Umbilical hernia repair. ENCOUNTER: Initial ACUITY: 1 day PAIN SCORE: 0/10 LOCATION: cranial TECHNIQUE: Multiplanar, multisequence MRI of the brain was performed without contrast. FINDINGS: Marked periventricular white matter changes are noted with associated central and cortical atrophy. There are no extra-axial fluid collections appreciated. There is no restricted diffusion. There is no parenchymal hemorrhage Posterior fossa shows mild chronic ischemic changes as well. Midline structures are intact. There is no parenchymal hemorrhage Orbits and paranasal sinuses unremarkable. CONCLUSION: Marked periventricular white matter changes central and cortical atrophy, No restricted diffusion to suggest acute ischemic event. Artur Bacon MD FACR on October 19, 2017 at 10:35 Board Certified Radiologist. This report was verified electronically.
--- NOTE | 2017-10-19 10:44 | EKG ---
Date Performed: 10/18/2017 Time Performed: 16:40:46 PTAGE: 87 years EKG: ATRIAL FIBRILLATION WITH ABERRANT CONDUCTION OR VENTRICULAR PREMATURE COMPLEXES LEFT ANTERI OR FASCICULAR BLOCK INFERIOR MYOCARDIAL INFARCTION MODERATE T-WAVE ABNORMALITY, CONSIDER LATERAL ISCH EMIA ABNORMAL ECG NO PREVIOUS TRACING DOCTOR: David Giang Interpretating Date/Time 10/19/2017 10:43:14
--- NOTE | 2017-10-19 13:49 | MB ---
cc: Jr Terry MD DATE OF CONSULT: REASON FOR CONSULTATION: For evaluation of possible bradycardia and neuro status changes. HISTORY OF PRESENT ILLNESS: Reddy Gaspar is an 87-year-old man who I am consulted on because of some arrhythmias and some mental status changes. The patient is known to have heart disease. He underwent a bovine aortic valve replacement in 2007. He had a cardiac catheterization prior to that valve replacement and only had mild disease. He has a history of a circumflex marginal branch stent in 2005. He has chronic atrial fibrillation. He was recently hospitalized at [facility] after having some episodes where he turned pale, was somewhat unresponsive, and had a heart rate apparently only in the 30s. In the hospital, his beta-riki dose was reduced. He did not have any further bradycardia in the hospital. CT scan was unremarkable. Echo showed preserved LV function. Apparently he was home and physical therapy was working with him and he got very pale and mentally became "out of it." His son came over and noticed he was pale, he was too weak to be able to stand up on his own. It cleared up either before or right after he got to the ER and he no longer has any mental status changes. There is also a comment about him having a slow pulse rate. He is noted to have frequent PVCs with a pulse deficit between the pulse rate and the heart rate. Here in the hospital, he has had a couple episodes of nonsustained V-tach, but without any clear-cut symptoms during those episodes. Denies any chest pain, chest tightness, chest squeezing, or anything else that I can construe as angina. His troponin is minimally elevated and he has the runs of V-tach. Apparently he is short of breath, too, when he moves around. MEDICATIONS: Include allopurinol, 325 mg aspirin, atorvastatin 40 mg, Eliquis, glimepiride, metoprolol 25 b.i.d., torsemide, has been very low dose, tramadol and trazodone. PAST MEDICAL HISTORY: Includes aortic stenosis with bovine aortic valve replacement in 2007, he has carotid disease, status post right carotid endarterectomy, chronic stage III kidney disease, his creatinines have dropped below 1.5 here and when he was in the hospital at [facility], dyslipidemia, diabetes, micturition syncope in 2016, morbid obesity, spinal stenosis. PAST SURGICAL HISTORY: Includes last cath on 08/02/2008, a #25 Helio-Pemberton aortic valve replacement on 08/04/2008, 2.5 mm stent of the obtuse marginal branch 1 on 06/17/2006. SOCIAL HISTORY: He currently does not drink or smoke. FAMILY HISTORY: Positive for coronary disease. PHYSICAL EXAMINATION: Reveals an elderly but alert white male. VITAL SIGNS: Are charted. He is in AFib with a controlled ventricular rate. He is noted to have an 11-beat run of V-tach at 7:29 a.m. this morning and some irregular ventricular tachycardia rhythm at 5:30 a.m. HEENT: Unremarkable. NECK: Shows no JVD, no bruits. CHEST: Clear to auscultation. CARDIAC: Shows normal first and second heart sounds. Regular in rate and rhythm. He has a grade I/ systolic ejection murmur. There is no S3 gallop. ABDOMEN: Soft, nontender. No masses, organomegaly. EXTREMITIES: Reveal intact pulses. Only trace edema. NEUROLOGIC: He is awake and alert at the time I am seeing him. LABORATORY STUDIES: EKG demonstrates atrial fibrillation with PVCs. There is left anterior fascicular block. His BUN and creatinine were 33/1.85, has improved to 30/1.43. Troponin is 0.07, 0.09, and 0.07. Albumin is low at 3.2. Potassium level is normal. Hematocrit is 31.7. Chest x-ray is showing cardiomegaly with no signs of CHF. Brain MRI is showing marked white matter changes and cortical atrophy, but no evidence for CVA. IMPRESSION: 1. History of bovine aortic valve replacement with no signs of dysfunction. 2. History of frequent ventricular ectopy including short runs of ventricular tachycardia. He is not having signs and symptoms of ischemia, but the arrhythmias are a concern. 3. History of turning white and having his heart rate drop to 30s, some suggestion of possible vagal spells. RECOMMENDATIONS: I am going to check a stress test with a Lexiscan nuclear stress test to assess his coronary disease further. I have resumed his Eliquis 5 b.i.d. and his metoprolol 25 b.i.d. and I am reducing the aspirin dose to 81 mg from 325. Further therapy to be determined. MD MARCELA Avina/ANTHONY , 01:32 PM , 01:47 PM
--- NOTE | 2017-10-19 15:04 | HHI.PR ---
Subjective Remarks Patient seen this morning around 10:30 AM. Says he is feeling all right. Denies any chest pain or shortness of breath. Objective Vital Signs Date Time Temp Pulse Resp B/P (MAP) Pulse Ox O2 Delivery O2 Flow Rate FiO2 10/19/17 14:00 76 10/19/17 13:00 86 10/19/17 12:01 97.5 85 18 138/80 (99) 97 10/19/17 12:00 83 10/19/17 11:00 74 10/19/17 10:00 83 10/19/17 09:00 92 10/19/17 08:02 97.6 91 18 131/87 (102) 94 10/19/17 08:00 76 10/19/17 07:00 87 10/19/17 07:00 97.6 91 18 131/87 (102) 94 10/19/17 04:00 96 10/18/17 22:50 80 10/18/17 22:42 84 16 123/73 (90) 96 10/18/17 21:32 81 20 123/63 (83) 97 10/18/17 20:32 85 18 134/79 (97) 95 Room Air 10/18/17 19:39 76 20 142/71 (94) 95 Room Air 10/18/17 16:54 77 18 97 Nasal Cannula 2.00 10/18/17 16:54 97 Nasal Cannula 2.00 10/18/17 16:38 98.7 79 18 147/65 (92) 99 I/O 10/18/17 10/18/17 10/18/17 10/19/17 10/19/17 10/19/17 07:00 15:00 23:00 07:00 15:00 23:00 Intake Total 480 ml Output Total 275 ml Balance 205 ml Intake Oral 480 ml Output Urine Total 275 ml Result Diagram: 10/19/1772910/19/17 0730 Objective Remarks GENERAL: NAD. awake and alert SKIN: Warm and dry. HEAD: Normocephalic. EYES: No scleral icterus. No injection or drainage. NECK: Supple, trachea midline. No JVD. CARDIOVASCULAR: Regular rate and rhythm without murmurs, gallops, or rubs. RESPIRATORY: Breath sounds equal bilaterally. No accessory muscle use. GASTROINTESTINAL: Abdomen soft, non-tender, nondistended. MUSCULOSKELETAL: No cyanosis, or edema. BACK: Nontender without obvious deformity. No CVA tenderness. A/P Assessment and Plan // Bradycardia: A-fib w/ SVR/Bradycardia. Recurrent. Recent admit to [facility] 10/14-10/16/17 for same, s/p eval by Dr. Aguayo, Metoprolol decreased from 75mg bid to 25mg bid, now on 12.5mg bid since yesterday w/ persistent bradycardia. Records obtained from [facility] and reviewed by me personally, Echo 10/14/17 w/ EF 50-55%. Admit to [facility], telemetry, check serial cardiac enzymes to r/o underlying ischemia as etiology. Follows w/ Dr. Terry, will consult for further evaluation/recommendations. = Pending evaluation by cardiology. Appreciate assistance. Continue Eliquis, metoprolol. Pending stress test. //CHF: Acute on Chronic. Systolic/Diastolic. Echo 10/14/17 w/ EF 50-55%, improved from previous Echo 11/03/15 w/ EF 40-45%. +lower extremity edema. CXR w/ no acute findings, images reviewed by me. Monitor I/O. Resume home diuresis. Resume home = Cardiology following. Appreciate assistance. // Elevated Trop: Trop 0.07, EKG w/ no acute ischemia. No c/o chest pain, possibly related to combination of Dysrhythmia and CHF. Trop 0.06 per review of labs from [facility] on 10/14/17. Check serial cardiac enzymes to eval for underlying ischemia. NTG/Morphine as needed however no chest pain. = Cardiology following. Appreciate assistance. // TIA: transient facial droop/weakness, now completely resolved, likely secondary to episode of bradycardia w/ hypoperfusion, however r/o TIA. CT Head w/ no acute findings, images reviewed by me. Check MRI Brain. Neuro checks q4h. Consult Neurology as needed for further recommendations. Resume home ASA , Statin. = Symptoms have resolved. MRI with chronic changes. No acute findings. Will order orthostatic vital signs, carotid ultrasounds. Patient has been started on Eliquis as per cardiology. // Renal Insufficiency: Acute on Chronic. Creatinine 1.85, previously 1.49 on 11/05/15. Caution with IVF in light of CHF. Repeat labs in a.m. = Creatinine 1.4. Resolved. // DM: Sliding scale with Accu-Cheks. // DVT Prophylaxis: On Eliquis Discharge Planning Pending cardiology clearance. Stress test pending. Jose Florence MD Oct 19, 2017 15:04
--- NOTE | 2017-10-19 18:38 | RADRPT ---
EXAM DATE/TIME: 10/19/2017 17:23 [facility] COMPARISON: No previous studies available for comparison. EXTERNAL COMPARISON : [facility], CTA CAROTID ARTERIES W/3D PROCESSING, August 16, 2016 INDICATIONS : Transient ischemic attack. MEDICAL HISTORY : Congestive heart failure. Hypercholesterolemia. Hypertension. Anticoagulant therapy. Irregular heartb eat. Arthritis. Measles. Blood transfusion. SURGICAL HISTORY : Inguinal hernia repair. Umbilical hernia repair. Coronary artery stent. Cystoscopy. Right shoulder kuhn rgery. Bilateral hip replacement. Aortic valve replacement. ENCOUNTER: Initial ACUITY: 1 day PAIN SCORE: 0/10 LOCATION: Bilateral neck PEAK SYSTOLIC VELOCITIES (cm/sec): ICA/CCA RATIO: Right: 0.7 Left: 0.9 ICA: Right: 58.5 Left: 92.4 CCA: Right: 79.0 Left: 98.4 ECA: Right: 87.8 Left: 76.2 VERTEBRAL: Right: 53.0 antegrade Left: 69.5 antegrade Elevated flow velocities and ICA/CCA ratios have been found to correlate with increased degrees of vessel stenosis, calculated as percentage of diameter relative to a normal segment of distal ICA/CCA FINDINGS: RIGHT CAROTID: No significant stenosis is visualized. The waveforms are within normal limits. LEFT CAROTID: No significant stenosis is visualized. The waveforms are within normal limits. VERTEBRAL ARTERIES: Antegrade flow is seen in both vertebral arteries. MISCELLANEOUS: None. CONCLUSION: 1. No evidence for hemodynamically significant stenosis of either carotid artery. 2. Antegrade flow in the vertebral arteries identified. Adonis Rubio MD on October 19, 2017 at 18:36 Board Certified Radiologist. This report was verified electronically.
[2017-10-19] MEDS ORDERED: APIXABAN 5 MG TABLET PO SCH (21:00)
[2017-10-19] MEDS: TAMSULOSIN HCL 0.4 MG CAP PO SCH (21:45)
[2017-10-19] MEDS: METOPROLOL TARTRATE 25 MG TAB PO SCH (21:46)
[2017-10-19] MEDS: ATORVASTATIN 40 MG TAB PO SCH (21:46)
[2017-10-19] MEDS: MIRTAZAPINE 15 MG TAB PO SCH (21:46)
[2017-10-20] VITALS (22 sets, daily range): BP systolic 113–133; BP diastolic 55–79; PULSE 44–97; RESP 16–18; TEMP 96.5–98.6; O2SAT 92–96
[2017-10-20] MEDS: APIXABAN 5 MG TABLET PO SCH (09:00)
[2017-10-20] MEDS: FINASTERIDE 5 MG TAB PO SCH (09:24)
[2017-10-20] MEDS: TORSEMIDE 20 MG TAB PO SCH (09:25)
[2017-10-20] MEDS: DOCUSATE SODIUM 50 MG/SENNA 8.6 MG TAB PO SCH ×2 (09:28→21:32)
[2017-10-20] MEDS: METOPROLOL TARTRATE 25 MG TAB PO SCH (09:28)
[2017-10-20] MEDS: MULTIVITAMIN TAB PO SCH (09:28)
[2017-10-20] MEDS: ASPIRIN 81 MG CHEW TAB PO SCH (09:28)
[2017-10-20] MEDS: SODIUM CHLORIDE 0.9% FLUSH 10 ML FLUSH IV FLUSH SCH ×2 (09:40→21:32)
--- NOTE | 2017-10-20 10:07 | PD.CARD.PN ---
Subjective Subjective Remarks No complaints Objective Medications Current Medications Medications (Trade) Dose Ordered Sig/Terese Route Start Time Stop Time Status Last Admin (NS Flush) 2 ml UNSCH PRN IVF 10/18/17 17:00 (NS Flush) 2 ml UNSCH PRN IV FLUSH 10/18/17 20:00 (NS Flush) 2 ml BID IV FLUSH 10/18/17 21:00 10/20/17 09:40 (Zofran Inj) 4 mg Q6H PRN IVP 10/18/17 20:00 (Tylenol) 650 mg Q6H PRN PO 10/18/17 20:00 ([place] 5-325 Mg) 1 tab Q4H PRN PO 10/18/17 20:00 (Morphine Inj) 2 mg Q3H PRN IV PUSH 10/18/17 20:00 (Tammy-Colace) 1 tab BID PO 10/18/17 21:00 10/20/17 09:28 (Milk Of Magnesia Liq) 30 ml Q12H PRN PO 10/18/17 20:00 (Senokot) 17.2 mg Q12H PRN PO 10/18/17 20:00 (Dulcolax Supp) 10 mg DAILY PRN RECTAL 10/18/17 20:00 (Lactulose Liq) 30 ml DAILY PRN PO 10/18/17 20:00 (Eliquis) 5 mg BID PO 10/18/17 21:00 10/19/17 21:46 (Lipitor) 40 mg HS PO 10/18/17 21:00 10/19/17 21:46 (Proscar) 5 mg DAILY PO 10/19/17 09:00 10/20/17 09:24 (Remeron) 15 mg HS PO 10/18/17 21:00 10/19/17 21:46 (Flomax) 0.4 mg HS PO 10/18/17 21:00 10/19/17 21:45 (Demadex) 20 mg DAILY PO 10/19/17 09:00 10/20/17 09:25 (Melatonin) 2.5 mg HS PO 10/18/17 21:00 10/19/17 21:44 (Theragran) 1 tab DAILY PO 10/19/17 09:00 10/20/17 09:28 (Aspirin Chew) 81 mg DAILY PO 10/20/17 09:00 10/20/17 09:28 (Lopressor) 25 mg Q12HR PO 10/19/17 21:00 10/20/17 09:28 Vital Signs / I&O Vital Signs Date Time Temp Pulse Resp B/P (MAP) Pulse Ox O2 Delivery O2 Flow Rate FiO2 10/20/17 07:00 68 10/20/17 07:00 97.2 79 18 125/76 (92) 94 10/20/17 04:40 97 16 133/71 (91) 93 10/20/17 03:00 79 10/20/17 02:00 76 10/20/17 01:00 68 10/20/17 00:00 64 10/19/17 23:30 88 20 149/89 (109) 20 10/19/17 23:00 76 10/19/17 22:00 80 10/19/17 21:00 80 10/19/17 20:00 82 10/19/17 19:45 98.0 90 20 141/81 (101) 95 10/19/17 19:00 85 10/19/17 18:00 78 10/19/17 17:00 81 10/19/17 16:05 92 20 135/87 (103) 97 10/19/17 16:03 87 18 135/81 (99) 97 10/19/17 16:01 83 18 115/73 (87) 96 10/19/17 16:00 79 10/19/17 15:00 79 10/19/17 14:00 76 10/19/17 13:00 86 10/19/17 12:01 97.5 85 18 138/80 (99) 97 10/19/17 12:00 83 10/19/17 11:00 74 I/O 10/19/17 10/19/17 10/19/17 10/20/17 10/20/17 10/20/17 07:00 15:00 23:00 07:00 15:00 23:00 Intake Total 480 ml 980 ml 240 ml Output Total 275 ml 1200 ml 830 ml Balance 205 ml -220 ml -590 ml Intake Oral 480 ml 980 ml 240 ml Output Urine Total 275 ml 1200 ml 830 ml # Bowel Movements 0 Physical Exam Alert Chest clear CV S1S2 RRR 2/6 SERGIO Tele: frequent and complex ventricular arrythmias Ext Trace edema Imaging Last 48 hours Impressions Carotid Artery Ultrasound 10/19/17 0000 Signed Impressions: Service Date/Time: Thursday, October 19, 2017 17:23 - CONCLUSION: 1. No evidence for hemodynamically significant stenosis of either carotid artery. 2. Antegrade flow in the vertebral arteries identified. Adonis Rubio MD Brain MRI 10/19/17 0000 Signed Impressions: Service Date/Time: Thursday, October 19, 2017 10:09 - CONCLUSION: Marked periventricular white matter changes central and cortical atrophy, No restricted diffusion to suggest acute ischemic event. Artur Bacon MD FACR Head CT 10/18/17 1652 Signed Impressions: Service Date/Time: Wednesday, October 18, 2017 18:44 - CONCLUSION: No significant change has occurred. Adonis Rubio MD Chest X-Ray 10/18/17 1652 Signed Impressions: Service Date/Time: Wednesday, October 18, 2017 17:21 - CONCLUSION: No acute disease. Adonis Rubio MD Assessment and Plan Problem List: (1) Ventricular arrhythmia ICD Codes: I49.9 - Cardiac arrhythmia, unspecified Plan: Suspect this is cause of sx's. No LV dysfunction. No angina (2) Coronary artery disease ICD Codes: I25.10 - Atherosclerotic heart disease of [place] coronary artery without angina pectoris Plan: [place]ka-SPECT in progress (3) History of aortic valve replacement with bioprosthetic valve ICD Codes: Z95.3 - Presence of xenogenic heart valve Plan: Nl function (4) Elevated troponin ICD Codes: R74.8 - Abnormal levels of other serum enzymes Plan: Minimally elevated Assessment and Plan Rivka-SPECT in progress Jr Terry MD Oct 20, 2017 10:07
--- NOTE | 2017-10-20 11:27 | HHI.PR ---
Subjective Remarks Follow-up for DVT Patient has no complaints. He said that he is doing well. Denies any chest pain, shortness of breathing, potation, lightheadedness or dizziness. No acute events. Objective Vitals Vital Signs Date Time Temp Pulse Resp B/P (MAP) Pulse Ox O2 Delivery O2 Flow Rate FiO2 10/20/17 11:00 96.8 77 18 122/79 (93) 92 10/20/17 10:00 76 10/20/17 09:00 74 10/20/17 08:00 78 10/20/17 07:00 68 10/20/17 07:00 97.2 79 18 125/76 (92) 94 10/20/17 04:40 97 16 133/71 (91) 93 10/20/17 03:00 79 10/20/17 02:00 76 10/20/17 01:00 68 10/20/17 00:00 64 10/19/17 23:30 88 20 149/89 (109) 20 10/19/17 23:00 76 10/19/17 22:00 80 10/19/17 21:00 80 10/19/17 20:00 82 10/19/17 19:45 98.0 90 20 141/81 (101) 95 10/19/17 19:00 85 10/19/17 18:00 78 10/19/17 17:00 81 10/19/17 16:05 92 20 135/87 (103) 97 10/19/17 16:03 87 18 135/81 (99) 97 10/19/17 16:01 83 18 115/73 (87) 96 10/19/17 16:00 79 10/19/17 15:00 79 10/19/17 14:00 76 10/19/17 13:00 86 10/19/17 12:01 97.5 85 18 138/80 (99) 97 10/19/17 12:00 83 I/O 10/19/17 10/19/17 10/19/17 10/20/17 10/20/17 10/20/17 07:00 15:00 23:00 07:00 15:00 23:00 Intake Total 480 ml 980 ml 240 ml Output Total 275 ml 1200 ml 830 ml Balance 205 ml -220 ml -590 ml Intake Oral 480 ml 980 ml 240 ml Output Urine Total 275 ml 1200 ml 830 ml # Bowel Movements 0 Result Diagram: 10/19/17 0730 10/19/17 0730 Objective Remarks GENERAL: in NAD CARDIOVASCULAR: Regular rate and rhythm without murmurs, gallops, or rubs. RESPIRATORY: Breath sounds equal bilaterally. No accessory muscle use. GASTROINTESTINAL: Abdomen soft, non-tender, nondistended. MUSCULOSKELETAL: No cyanosis, or edema. BACK: Nontender without obvious deformity. No CVA tenderness. Medications and IVs Current Medications Sodium Chloride (NS Flush) 2 ml UNSCH PRN IVF FLUSH AFTER USING IV ACCESS; Start 10/18/17 at 17:00 Sodium Chloride (NS Flush) 2 ml UNSCH PRN IV FLUSH FLUSH AFTER USING IV ACCESS ; Start 10/18/17 at 20:00 Sodium Chloride (NS Flush) 2 ml BID IV FLUSH Last administered on 10/20/17at 09: 40; Start 10/18/17 at 21:00 Ondansetron HCl (Zofran Inj) 4 mg Q6H PRN IVP NAUSEA OR VOMITING; Start at 20:00 Acetaminophen (Tylenol) 650 mg Q6H PRN PO FEVER/PAIN SCALE 1 TO 2; Start at 20:00 Acetaminophen/ Hydrocodone Bitart ([place] 5-325 Mg) 1 tab Q4H PRN PO PAIN SCALE 3 TO 5; Start 10/18/17 at 20:00 Morphine Sulfate (Morphine Inj) 2 mg Q3H PRN IV PUSH Pain 6-10; Start 10/18/17 at 20:00 Senna/Docusate Sodium (Tammy-Colace) 1 tab BID PO Last administered on 10/20/17at 09:28; Start 10/18/17 at 21:00 Magnesium Hydroxide (Milk Of Magnesia Liq) 30 ml Q12H PRN PO Mild constipation ; Start 10/18/17 at 20:00 Sennosides (Senokot) 17.2 mg Q12H PRN PO Moderate constipation; Start 10/18/17 at 20:00 Bisacodyl (Dulcolax Supp) 10 mg DAILY PRN RECTAL SEVERE CONSITIPATION; Start at 20:00 Lactulose (Lactulose Liq) 30 ml DAILY PRN PO SEVERE CONSITIPATION; Start at 20:00 Apixaban (Eliquis) 5 mg BID PO Last administered on 10/19/17 21:46; Start at 21:00; Stop 10/20/17 at 10:01; Status DC Aspirin (Aspirin) 325 mg DAILY PO Last administered on 10/19/17 08:39; Start at 09:00; Stop 10/19/17 at 13:03; Status DC Atorvastatin Calcium (Lipitor) 40 mg HS PO Last administered on 10/19/17 21:46 ; Start 10/18/17 at 21:00 Finasteride (Proscar) 5 mg DAILY PO Last administered on 10/20/17 09:24; Start 10/19/17 at 09:00 Mirtazapine (Remeron) 15 mg HS PO Last administered on 10/19/17 21:46; Start at 21:00 Tamsulosin HCl (Flomax) 0.4 mg HS PO Last administered on 10/19/17 21:45; Start 10/18/17 at 21:00 Torsemide (Demadex) 20 mg DAILY PO Last administered on 10/20/17 09:25; Start 10/19/17 at 09:00 Melatonin (Melatonin) 2.5 mg HS PO Last administered on 10/19/17 21:44; Start 10/18/17 at 21:00 Multivitamins (Theragran) 1 tab DAILY PO Last administered on 10/20/17 09:28; Start 10/19/17 at 09:00 Apixaban (Eliquis) 5 mg BID PO ; Start 10/19/17 at 21:00; Stop 10/19/17 at 21:00; Status DC Aspirin (Aspirin Chew) 81 mg DAILY PO Last administered on 10/20/17 09:28; Start 10/20/17 at 09:00 Metoprolol Tartrate (Lopressor) 25 mg Q12HR PO Last administered on 10/20/17 09 :28; Start 10/19/17 at 21:00 A/P Problem List: (1) Bradycardia ICD Code: R00.1 - Bradycardia, unspecified Status: Acute (2) TIA (transient ischemic attack) ICD Code: G45.9 - Transient cerebral ischemic attack, unspecified (3) CHF (congestive heart failure) ICD Code: I50.9 - Heart failure, unspecified Status: Acute (4) Elevated troponin ICD Code: R74.8 - Abnormal levels of other serum enzymes (5) Renal insufficiency ICD Code: N28.9 - Disorder of kidney and ureter, unspecified (6) DM (diabetes mellitus) ICD Code: E11.9 - Type 2 diabetes mellitus without complications Assessment and Plan This is a 87-year-old male who presented with VT Ventricular arrhythmias -Paper Tube Cutter consulted. Being managed by restaurant crew person. Patient on metoprolol. Pending nuclear stress test before restaurant crew person can give further recommendations. A-fib w/ SVR/Bradycardia. -Initially on metoprolol but that was decreased. -Echo 10/14/17 w/ EF 50-55%. -Pending nuclear stress test today. CHF: Acute on Chronic. Systolic/Diastolic. - Echo 10/14/17 w/ EF 50-55%, improved from previous Echo 11/03/15 w/ EF 40-45%. +lower extremity edema. CXR w/ no acute findings, images reviewed by me. Monitor I/O. -Continue with home diuresing. Elevated Trop: Trop 0.07, EKG w/ no acute ischemia. No c/o chest pain, possibly related to combination of Dysrhythmia and CHF. Trop 0.06 per review of labs from [facility] on 10/14/17. -Troponins remained flat. -Patient will have a nuclear stress test. TIA: transient facial droop/weakness, now completely resolved - likely secondary to episode of bradycardia w/ hypoperfusion, however r/o TIA. CT Head w/ no acute findings. MRI of the brain shows no acute ischemia. Carotid ultrasound shows no significant stenosis. -Continue ASA, Statin. Renal Insufficiency: Acute on Chronic. -Creatinine 1.85, previously 1.49 on 11/05/15. Caution with IVF in light of CHF. Repeat labs in a.m. -Creatinine 1.4. Resolved. DM: Sliding scale with Accu-Cheks. DVT Prophylaxis: On Eliquis Discharge Planning Pending nuclear stress test will determine recommendations. Patient also will need clearance from his restaurant crew person. Yvette Gunderson MD Oct 20, 2017 11:27
[2017-10-20] MEDS ORDERED: ATROPINE SULFATE 1 MG/10 ML SYRINGE ONE (11:51)
[2017-10-20] MEDS ORDERED: EPINEPHrine HCL (1:10,000) 1 MG/10 ML SYRINGE ONE (11:52)
[2017-10-20] MEDS ORDERED: REGADENOSON INJ 0.4 MG/5 ML SYR ONE (12:06)
--- NOTE | 2017-10-20 14:09 | RADRPT ---
EXAM DATE/TIME: 10/19/2017 16:09 [place] COMPARISON: MYOCARDIAL PERF PHARM SPECT, GATED W/EF, November 04, 2015, 11:08. INDICATIONS : Elevated troponins and abnormal EKG. Coronary artery disease. DOSE: 30 mCi Tc99m Myoview at stress. 32.2 mCi Tc99m Myoview at rest. 0.4 mg Lexiscan STRESS SYMPTOMS: None. EJECTION FRACTION: 32% MEDICAL HISTORY : Hypertension. Congestive heart failure. A-Fib. SURGICAL HISTORY : Carotid endarterectomy. Umbilical hernia repair. Aortic valave. ENCOUNTER: Initial ACUITY: 1 day PAIN SCALE: 0/10 LOCATION: Substernal chest TECHNIQUE: The patient underwent pharmacologic stress with infusion of prescribed dose. Continuous ECG tracing was monitored during stress. Gated SPECT imaging was performed after stress and conventional SPECT i maging was performed at rest. The examination was performed on a SPECT/CT scanner, both attenuation and non-corrected datasets were reviewed. FINDINGS: The ejection fraction remains at 32% with global hypokinesis. The best perfused myocardium at stress is the anterior lateral wall. Myocardium is better perfused at stress in all projections. There is no redistribution to suggest stress-induced ischemia. with ischemia. CONCLUSION: Ejection fraction 30%. Negative for stress-induced ischemia RISK CATEGORY: High (>3% Annual Mortality Rate) Artur Bacon MD FACR on October 20, 2017 at 14:06 Board Certified Radiologist. This report was verified electronically.
[2017-10-20 15:35] LABS: AUTOMATED NEUTROPHIL # 3.1 TH/MM3 (1.8-7.7); BASOPHIL % 0.6 % (0.0-2.0); EOSINOPHIL # 0.2 TH/MM3 (0-0.4); EOSINOPHIL % 4.1 % (0.0-4.0); HEMOGLOBIN 10.3 GM/DL (13.0-17.0); LYMPH % 18.5 % (9.0-44.0); LYMPHOCYTE # 0.9 TH/MM3 (1.0-4.8); MEAN CELL VOLUME 99.6 FL (80.0-100.0); MEAN CORPUSCULAR HGB CONC 33.2 % (32.0-36.0); MEAN PLATELET VOLUME 8.6 FL (7.0-11.0); MONO % 13.3 % (0.0-8.0); MONOCYTE # 0.6 TH/MM3 (0-0.9); NEUT % 63.5 % (16.0-70.0); PLATELET COUNT 141 TH/MM3 (150-450); RED BLOOD COUNT 3.11 MIL/MM3 (4.50-5.90); RED CELL DISTRIBUTION WIDTH 15.7 % (11.6-17.2); WHITE BLOOD COUNT 4.8 TH/MM3 (4.0-11.0)
[2017-10-20] MEDS: MIRTAZAPINE 15 MG TAB PO SCH (21:31)
[2017-10-20] MEDS: ATORVASTATIN 40 MG TAB PO SCH (21:32)
[2017-10-20] MEDS: MELATONIN 5 MG TAB PO SCH (21:32)
[2017-10-20] MEDS: TAMSULOSIN HCL 0.4 MG CAP PO SCH (21:32)
[2017-10-21] VITALS (27 sets, daily range): BP systolic 99–155; BP diastolic 51–93; PULSE 58–86; RESP 16–20; TEMP 95.7–98.5; O2SAT 92–99
[2017-10-21 06:57] LABS: ALBUMIN 3.1 GM/DL (3.4-5.0); AST (GOT) 17 U/L (15-37); BICARBONATE 32.7 MEQ/L (21.0-32.0); BLOOD UREA NITROGEN 34 MG/DL (7-18); CALCIUM 8.9 MG/DL (8.5-10.1); CHLORIDE 105 MEQ/L (98-107); CREATININE 1.48 MG/DL (0.60-1.30); GLOMERULAR FILTRATION RATE 45 ML/MIN (>89); GLUCOSE,RANDOM 139 MG/DL (74-106); SODIUM (NA) 143 MEQ/L (136-145)
[2017-10-21 06:59] LABS: ALT (GPT) 18 U/L (12-78)
[2017-10-21 07:01] LABS: ALKALINE PHOSPHATASE 110 U/L (45-117); TOTAL BILIRUBIN ADULT 0.5 MG/DL (0.2-1.0); TOTAL PROTEIN 6.2 GM/DL (6.4-8.2)
[2017-10-21] MEDS: MULTIVITAMIN TAB PO SCH (09:01)
[2017-10-21] MEDS: ASPIRIN 81 MG CHEW TAB PO SCH (09:02)
[2017-10-21] MEDS: FINASTERIDE 5 MG TAB PO SCH (09:02)
[2017-10-21] MEDS: TORSEMIDE 20 MG TAB PO SCH (09:02)
[2017-10-21] MEDS: SODIUM CHLORIDE 0.9% FLUSH 10 ML FLUSH IV FLUSH SCH ×2 (09:03→20:47)
[2017-10-21] MEDS: DOCUSATE SODIUM 50 MG/SENNA 8.6 MG TAB PO SCH ×2 (09:03→20:47)
[2017-10-21] MEDS ORDERED: MIDAZOLAM HCL 2 MG/2 ML VIAL ONE (11:09)
[2017-10-21] MEDS ORDERED: VERAPAMIL HCL 5 MG/2 ML VIAL ONE (11:10)
[2017-10-21] MEDS ORDERED: NITROGLYCERIN INJ 5 ML ONE (11:10)
[2017-10-21] MEDS ORDERED: HEPARIN SODIUM - IV 10,000 UNITS/10 ML VIAL ONE (11:10)
[2017-10-21] MEDS ORDERED: SODIUM CHLOR 0.9% 1000 ML INJ 1,000 ML IV SCH (11:58)
[2017-10-21] MEDS ORDERED: MISC INFORMATION XX ONE (12:00)
[2017-10-21] MEDS ORDERED: BACITRACIN OINT 0.9 GM PKT TOP ONE (12:00)
[2017-10-21] MEDS ORDERED: SODIUM CHLORIDE 0.9% FLUSH 10 ML FLUSH IV FLUSH PRN (12:00)
--- NOTE | 2017-10-21 12:05 | CATHPROC ---
[facility] HIS Report Study Information Study Number Admission Scheduled Start Study Start [id number] Oct 18 2017 9:16PM 10/21/2017 Oct 21 2017 10:45AM [place] [facility] Cardiac Catheterization Admit Source Facility Department Emergency department [facility] - Yarn Polishing Machine Operator Physician and Clinical Staff Initial Jr Moncada Rv Detailer Dillan John,BETH Recorder Raphael Baxter,RT(R) Recorder Sarah Esteves,BETH Scrub Nyasia Wang,RT(R) (BS) Procedures Performed Procedure Location (Site) Vessel Name Coronary Angiograms LCA Left Coronary Coronary Angiograms RCA Right Coronary L Heart Cath Equipment Time Histology Specialist Description Size Mfg Part Number Used/Scraped TRANSDUCER, TRUWAVE [id number] 11:08 MORALES HOUSER * Used W/STOCKCOCK *[id number] *[id number] 11:08 MALLINCKRODT SYRINGE, ANGIOMAT 150ML 150ML *[id number] Used 2SUB [id number] 11:08 Buddy PACK, CCL CUSTOM * Used *[id number] 11:08 Buddy SUPPORT, ARTERIAL ADULT 33565 *[id number] Used [id number] 11:08 [employer]et PACER PEN, SKIN DUAL W/ RULER * Used *[id number] BAND, RADIAL COMPRESSION TR [id number] 12:03 [employer] MEDICAL 24CM Used SHORT 24 *[id number] BAND, RADIAL COMPRESSION TR [id number] 12:03 [employer] MEDICAL 24CM Used SHORT 24 *[id number] 11:08 [employer] WIRE, EXCHANGE 260CM 3MMJ 260CM Used *[id number] 11:08 NAMIC MANIFOLD, 4 PORT * Used *[id number] 11:08 NYCOMED OMNIPAQUE, 350 MG, 100ML 100ML [id number] Used [id number] 11:08 [employer] BLANKET,WARM AIR CCL * Used *[id number] 11:08 [employer] JELCO NEEDLE 4056 *[id number] Used CATHETER, FR5 OPTITORQUE [id number] 11:35 [employer] MEDICAL FR 5 Used RADIAL TIG 4.0 *[id number] SHEATH, FR6 TRANSRADIAL RM*[id number] 11:08 TER[employer] MEDICAL FR 6 Used SLENDER 10CM *[id number] History: Allergies Allergy Reaction No Known Allergies History: Risk Factors Family History of Hypertension Dyslipidemia Previous IN Previous Heart Failure Premature CAD Yes Yes No No No Prior Valve Prior PCI Prior CABG Surgery Yes No No Cerebrovascular Peripheral Artery Chronic Lung On Dialysis Diabetes Diabetes Therapy Disease Disease Disease No Yes No No Yes None History: Symptoms/Diagnosis Selection Items SOB History: Stress Tests Stress or Imaging Studies Performed Yes Standard Exercise Stress Test No Stress Echo No Stress Test SPECT Stress Test SPECT Result Yes Negative Stress Test CMR No Cardiac CTA Coronary Calcium Score No No History: Other Disease Selection Items CHF HTN Labs Hgb (g/dl) Hct (%) WBC (l/cumm) Platelets (thousands) 11.60-17.00 35.00-51.00 4.00-11.00 150.00-450.00 10.3 31 4.8 141 Glucose (mg/dl) BUN (mg/dl) Creatinine (mg/dl) BUN:Creatinine (1:x) 74.00-106.00 7.00-18.00 0.50-1.30 10.00-20.00 139 34 1.5 22.7 Na (meq/l) K (meq/l) 136.00-145.00 3.50-5.10 143 4.6 INR (PTT:PT) 0.90-1.10 1.2 CPK-MB (ng/ML) 0.50-3.60 Not Drawn Medication Medication Total Dose (Bolus/Oral) Medication Total Dosage/Unit 1% XYLOCAINE 5 mL RADIAL COCKTAIL 5 mL (Bolus) VERSED 1 mg Medications (Bolus/Oral) Medication Time Given Dosage/Unit Administered By Reason VERSED 10/21/2017 11:19:54 AM 1 mg Dillan John 1 mg VERSED given in lab by Dillan John RN in Left Wrist via Peripheral IV. Ordered by Tiki Terry. 1% XYLOCAINE 10/21/2017 11:20:19 AM 5 mL Jr Terry 5 mL 1% XYLOCAINE given in lab by Jr Terry in Right Wrist via Subcutaneous. Ordered by Shayan Terry. Ntg 200mcg Verapamil 2.5mg Heparin RADIAL COCKTAIL 10/21/2017 11:35:14 AM 5 mL (Bolus) Jr Terry 2500U 5 mL (Bolus) RADIAL COCKTAIL given in lab by Jr Terry in Right Radial via Radial. Using [Solutio n Name]. Ordered by Jr Terry. Reason: Ntg 200mcg Verapamil 2.5mg Heparin 2500U. Medication (Drip) Medication Time Given Dosage/Unit Concentration/Unit Diluent (ml) Solution IV Solutions 10/21/2017 11:04:43 AM 0 mL (IV) 500 NaCl .9 Patient arrived on IV Solutions given by Jr Terry in Right Wrist via Peripheral IV. Pump/Drip Fl ow = 20 ml/hr using NaCl .9. Ordered by Jr Terry. Initial Case Assessment Cardiovascular HR Rhythm NIBP Chest Pain 80 sr 142/85 0 Edema Present Skin color Skin None Normal Warm Dry Circulatory - Right Pulses Dorsalis Pedis Femoral Radial 2 2 2 Scale (0,1,2,3,4,d) Scale (0,1,2,3,4,d) Neurological State Oriented to time-place- Alert Moves all extremities person Respiration - General Respiration Rate SpO2 (%) O2 (lpm) (B/min) 18 96 0 Final Case Assessment Cardiovascular HR Rhythm NIBP Chest Pain 70 NSR 119/72 0 Edema Present Skin color Skin Mild Normal Warm Dry Circulatory - Right Pulses Dorsalis Pedis Posterior Tibial Femoral Radial 1 1 1 1 Scale (0,1,2,3,4,d) Circulatory - Left Pulses Dorsalis Pedis Posterior Tibial Femoral Radial 1 1 1 Scale (0,1,2,3,4,d) Circulatory - Lower Extremities Color Lower Right Color Lower Left Normal Normal Neurological State Oriented to time-place- Alert Moves all extremities person Respiration - General Respiration Rate SpO2 (%) O2 (lpm) (B/min) 19 95 2 Chronological Log Time Study Chronological Log 10:49:41 Patient arrived via Bed. Positive Allens test performed by Raphael Baxter. 10:49:43 Patient Name, D.O.B, / Armband Verified By R.N. 10:49:45 Consent signed by the physician and the patient and verified by the Yarn Polishing Machine Operator staff. 10:49:46 Pre-op and post- op instructions given; patient acknowledges understanding of instructions. 11:03:57 Verbal Stimulation=2 Physical Stimulation=2 Airway=2 Respiration=2 TOTAL=8. (0=absent, 1=li mited, 2=present) 11:04:05 Presedation assessment performed by Yarn Polishing Machine Operator RN. 11:04:07 Patient has been NPO for More than 6Hrs. 11:04:09 Skin Breakdown-none present per patient 11:04:32 A # 20 IV was noted in the Wrist (right). Grade = 0 Patient arrived on IV Solutions given by Jr Terry in Right Wrist via Peripheral IV. Pump/D rip Flow = 20 ml/hr 11:04:43 using NaCl .9. Ordered by Jr Terry. 11:05:05 History and physical on the chart or being dictated. Vitals capture started with the following parameters, Patient=Adult, Interval=5 min, Initial Pr ugmgtl=694 mmHg, 11:05:07 Deflation Rate=5 mmHg, Cuff placed on Right Ankle 11:05:46 HR=72 bpm, SGMY=859/85 mmhg, SpO2=94.0 %, Resp=22 B/min, Jolly=2 Assessment: Initial Case, HR=80 BPM, Rhythm=sr, OVRV=427/85 mmhg, Chest Pain=0, Edema=None, Col or=Normal, Skin = Warm, Dry 11:05:54 Right Pulses: Pool Ped=2, Femoral=2, Radial=2 Neurological: State=Alert, Ox3, MCGRATH Respiration: Resp=18 B/min, SpO2=96 %, O2=0 lpm 11:06:00 Reference ECG taken 11:06:31 Right groin and right radial prepped with 2% chlorhexidine, and draped after a 3 min. waiti ng time. 11:10:45 HR=80 bpm, EMEZ=613/91 mmhg, SpO2=94.0 %, Resp=24 B/min, Pain=0, Ke=9, Jolly=2 11:11:13 2L NC applied by Dillan Dill RN 11:14:37 Pressure channel 1 zeroed. 11:15:48 HR=84 bpm, QMDU=189/82 mmhg, SpO2=97.0 %, Resp=20 B/min, Pain=0, Ke=9, Jolly=2 11:17:40 A # 20 IV was noted in the Wrist (left). Grade = 0 0.9NS infusing at KVO Time Out. Correct patient, correct procedure, correct physician, power injector not loaded with contrast with surgical 11:19:29 team present. Time Out Concurred by MD and individual staff in procedure. 11:19:54 1 mg VERSED given in lab by Dillan John, RN in Left Wrist via Peripheral IV. Ordered by Jr Terry. 11:20:18 Case Start 11:20:19 5 mL 1% XYLOCAINE given in lab by Jr Terry in Right Wrist via Subcutaneous. Ordered by Jr Terry. 11:20:47 HR=82 bpm, FRWZ=036/83 mmhg, SpO2=97.0 %, Resp=20 B/min, Pain=0, Ke=9, Jolly=2 11:25:48 HR=72 bpm, ZGKG=067/66 mmhg, SpO2=97.0 %, Resp=20 B/min, Pain=0, Ke=9, Jolly=2 11:30:47 HR=70 bpm, HAQU=311/71 mmhg, Resp=19 B/min, Pain=0, Ke=9, Jolly=2 11:33:21 Access site was Radial Artery. 5 mL (Bolus) RADIAL COCKTAIL given in lab by Jr Terry in Right Radial via Radial. Using [S olution Name]. 11:35:14 Ordered by Jr Terry. Reason: Ntg 200mcg Verapamil 2.5mg Heparin 2500U. 11:35:44 HR=72 bpm, KNQO=641/69 mmhg, SpO2=97.0 %, Resp=22 B/min, Pain=0, Ke=9, Jolly=2 A CATHETER, FR5 OPTITORQUE RADIAL TIG 4.0 FR 5 was advanced over a wire. OMNIPAQUE, 350 MG, 100 ML 100ML 11:36:37 was used for injections. Recorded Pressure: Ao, HR=68, Condition=Condition 1 11:37:51 (Aorta) Ao 95/56/73 11:38:49 The LCA was injected and visualized at various angles. OMNIPAQUE, 350 MG, 100ML 100ML used . 11:40:45 HR=76 bpm, TUBP=154/65 mmhg, SpO2=95.0 %, Resp=23 B/min, Pain=0, Ke=8, Jolly=2 After removing the current catheter a JR 4.0 INFINITI CATHETER FR 5 was advanced over a WIRE, E XCHANGE 260CM 11:45:07 3MMJ 260CM. 11:45:44 HR=81 bpm, GTBH=076/75 mmhg, SpO2=93.0 %, Resp=13 B/min, Pain=0, Ke=8, Jolly=2 11:46:45 The RCA was injected and visualized at various angles. OMNIPAQUE, 350 MG, 100ML 100ML used . 11:49:13 Catheter was removed 11:49:16 Wire removed 11:50:46 HR=73 bpm, WLBS=026/72 mmhg, Resp=16 B/min, Pain=0, Ke=8, Jolly=2 11:52:06 Case End Assessment: Final Case, HR=70 BPM, Rhythm=NSR, YTYW=344/72 mmhg, Chest Pain=0, Edema=Mild, [place] r=Normal, Skin = Warm, Dry Right Pulses: Pool Ped=1, Post Tib=1, Femoral=1, Radial=1 Left Pulses: Pool Ped=1, Post Tib=1, Femoral=1 11:52:49 Lower Right Extremities: Color=Normal Lower Left Extremities: Color=Normal Neurological: State=Alert, Ox3, MCGRATH Respiration: Resp=19 B/min, SpO2=95 %, O2=2 lpm Radial Compression Device Used. 15 mLs of air placed in BAND, RADIAL COMPRESSION TR SHORT 24 24 CM. Affected 11:54:09 hand 96 % O2 saturation. 11:54:38 CICU called. Spoke to Starr. 11:55:45 HR=75 bpm, FZTA=679/76 mmhg, SpO2=98.0 %, Resp=12 B/min, Pain=0, Ke=9, Jolly=2 11:55:59 Bedside Report will be given. 11:56:02 No case complications noted. 11:56:06 Cine recording checked. 11:56:13 Verbal Stimulation=2 Physical Stimulation=2 Airway=2 Respiration=2 TOTAL=8. (0=absent, 1=l imited, 2=present) 11:57:19 A Left Heart Cath was performed. 12:00:31 Patient moved to stretcher 12:01:16 YLRO=829/82 mmhg, Pain=0, Ke=9, Jolly=2 12:03:04 Vitals capture stopped. 12:05:03 Patient moved to stretcher End Study - Contrast Media Used In Study Contrast Total Opened (mL) Total Used (mL) Total Wasted (mL) Omnipaque 150 90 60 End Study - Maximum Contrast Load Max Contrast Load (mL) 376.4 End Study - Radiation Exposure Fluoro Time (minutes) 6.7 End Study - Patient Disposition Complications Transferred To Interventional Outcome No Telemetry Bed successful
[2017-10-21] MEDS ORDERED: IOHEXOL 350 MG/ML 100 ML BTL (for Cath Lab) OTHER ONE (12:14)
--- NOTE | 2017-10-21 12:22 | MA ---
cc: Jr Terry MD 10/21/2017 BRIEF HISTORY: Reddy Gaspar is an 87-year-old man who has had 2 episodes at home where he had become unresponsive, subsequently was admitted. He has been noted to have serious and complex ventricular arrhythmias. Nuclear stress test showed no ischemia but prior to an EP evaluation we need a definitely evaluation of his coronaries. DESCRIPTION OF PROCEDURE: The patient was brought to the cardiac label designer in the fasting state. The right groin and right wrist were prepped and draped in standard sterile fashion. Using 1% lidocaine for local anesthesia and a Jelco needle, access was obtained to the right radial artery and a Terumo Slender sheath placed. The left coronary was then imaging using a Westbrook catheter. There was severe tortuosity of the innominate artery but this was performed successfully. I could not get the Westbrook catheter in the right coronary artery and exchanged over a wire to a right Sully and was able to get selective angiograms of the right coronary artery. There was no need for revascularization. The catheter was removed. The sheath will be removed from the right wrist with a band placed. There were no complications. FINDINGS: 1. Hemodynamics: The aortic pressure was 95/56 with a mean of 73. 2. Coronary angiography: Left main appears normal. It trifurcates into the LAD, a large ramus branch and a circumflex vessel. The LAD and ramus branch only have slight irregularities. Circumflex artery has about 25% irregularities. The right coronary artery has somewhat diffuse distal disease. There is a focal 40% mid to distal stenosis and 25% disease right up the crux. None of this appeared hemodynamically significant. CONCLUSIONS: Nonobstructive coronary artery disease. PLAN: The patient is referred now to Dr. Gunn for an EP evaluation. MD MARCELA Avina/CHANTELLE , 11:57 AM , 12:21 PM
--- NOTE | 2017-10-21 14:13 | HHI.PR ---
Subjective Remarks Follow-up for heart arrhythmias Patient has no complaints. Patient 6th son and at the bedside during the interview. He denies any chest pain, shortness of breathing, palpitation, light his dizziness. Patient stated that once he is medically stable he does want to go home. He said that he would not go to rehab center. Family feels very comfortable with this decision. Objective Vitals Vital Signs Date Time Temp Pulse Resp B/P (MAP) Pulse Ox O2 Delivery O2 Flow Rate FiO2 10/21/17 14:00 78 10/21/17 13:00 76 10/21/17 12:30 80 16 155/93 (113) 92 10/21/17 12:00 72 10/21/17 10:14 78 10/21/17 09:44 70 10/21/17 09:27 65 10/21/17 09:00 78 10/21/17 08:00 95.7 86 18 150/91 (110) 98 10/21/17 07:00 95.7 86 18 150/91 (110) 98 10/21/17 07:00 86 10/21/17 07:00 80 10/21/17 06:00 77 10/21/17 05:00 75 10/21/17 04:00 72 10/21/17 03:00 98.5 73 16 125/80 (95) 97 10/21/17 03:00 73 10/21/17 02:00 76 10/21/17 01:00 82 10/21/17 00:00 73 10/20/17 23:00 74 10/20/17 23:00 98.4 79 16 113/72 (86) 94 10/20/17 22:00 80 10/20/17 21:00 76 10/20/17 20:00 77 10/20/17 20:00 98.6 74 16 120/75 (90) 96 10/20/17 19:00 74 10/20/17 18:00 80 10/20/17 17:00 82 10/20/17 16:00 70 10/20/17 15:00 96.5 67 16 131/55 (80) 96 10/20/17 15:00 71 I/O 3/5/18 3/5/18 3/5/18 3/6/18 3/6/18 3/6/18 07:00 15:00 23:00 07:00 15:00 23:00 Intake Total 240 ml 420 ml 480 ml Output Total 830 ml 1160 ml 625 ml Balance -590 ml -740 ml -145 ml Intake Oral 240 ml 420 ml 480 ml Output Urine Total 830 ml 1160 ml 625 ml # Bowel Movements 0 1 Result Diagram: 10/20/17 1436 10/21/17 0529 Objective Remarks GENERAL: in NAD CARDIOVASCULAR: Regular rate and rhythm without murmurs, gallops, or rubs. RESPIRATORY: Breath sounds equal bilaterally. No accessory muscle use. GASTROINTESTINAL: Abdomen soft, non-tender, nondistended. MUSCULOSKELETAL: No cyanosis, or edema. BACK: Nontender without obvious deformity. No CVA tenderness. Medications and IVs Current Medications Sodium Chloride (NS Flush) 2 ml UNSCH PRN IVF FLUSH AFTER USING IV ACCESS; Start 10/18/17 at 17:00 Sodium Chloride (NS Flush) 2 ml UNSCH PRN IV FLUSH FLUSH AFTER USING IV ACCESS ; Start 10/18/17 at 20:00 Sodium Chloride (NS Flush) 2 ml BID IV FLUSH Last administered on 10/21/17at 09: 03; Start 10/18/17 at 21:00 Ondansetron HCl (Zofran Inj) 4 mg Q6H PRN IVP NAUSEA OR VOMITING; Start at 20:00 Acetaminophen (Tylenol) 650 mg Q6H PRN PO FEVER/PAIN SCALE 1 TO 2; Start at 20:00 Acetaminophen/ Hydrocodone Bitart ([place] 5-325 Mg) 1 tab Q4H PRN PO PAIN SCALE 3 TO 5; Start 10/18/17 at 20:00 Morphine Sulfate (Morphine Inj) 2 mg Q3H PRN IV PUSH Pain 6-10; Start 10/18/17 at 20:00 Senna/Docusate Sodium (Tammy-Colace) 1 tab BID PO Last administered on 10/21/17at 09:03; Start 10/18/17 at 21:00 Magnesium Hydroxide (Milk Of Magnesia Liq) 30 ml Q12H PRN PO Mild constipation ; Start 10/18/17 at 20:00 Sennosides (Senokot) 17.2 mg Q12H PRN PO Moderate constipation; Start 10/18/17 at 20:00 Bisacodyl (Dulcolax Supp) 10 mg DAILY PRN RECTAL SEVERE CONSITIPATION; Start at 20:00 Lactulose (Lactulose Liq) 30 ml DAILY PRN PO SEVERE CONSITIPATION; Start at 20:00 Apixaban (Eliquis) 5 mg BID PO Last administered on 10/19/17 21:46; Start at 21:00; Stop 10/20/17 at 10:01; Status DC Aspirin (Aspirin) 325 mg DAILY PO Last administered on 10/19/17 08:39; Start at 09:00; Stop 10/19/17 at 13:03; Status DC Atorvastatin Calcium (Lipitor) 40 mg HS PO Last administered on 10/20/17 21:32 ; Start 10/18/17 at 21:00 Finasteride (Proscar) 5 mg DAILY PO Last administered on 10/21/17 09:02; Start 10/19/17 at 09:00 Mirtazapine (Remeron) 15 mg HS PO Last administered on 10/20/17 21:31; Start at 21:00 Tamsulosin HCl (Flomax) 0.4 mg HS PO Last administered on 10/20/17 21:32; Start 10/18/17 at 21:00 Torsemide (Demadex) 20 mg DAILY PO Last administered on 10/21/17 09:02; Start 10/19/17 at 09:00 Melatonin (Melatonin) 2.5 mg HS PO Last administered on 10/20/17 21:32; Start 10/18/17 at 21:00 Multivitamins (Theragran) 1 tab DAILY PO Last administered on 10/21/17 09:01; Start 10/19/17 at 09:00 Apixaban (Eliquis) 5 mg BID PO ; Start 10/19/17 at 21:00; Stop 10/19/17 at 21:00; Status DC Aspirin (Aspirin Chew) 81 mg DAILY PO Last administered on 10/21/17 09:02; Start 10/20/17 at 09:00 Metoprolol Tartrate (Lopressor) 25 mg Q12HR PO Last administered on 10/20/17 09 :28; Start 10/19/17 at 21:00; Stop 10/20/17 at 14:59; Status DC Atropine Sulfate (Atropine Inj) 1 mg STK-MED ONCE .ROUTE ; Start 10/20/17 at 11: 51; Stop 10/20/17 at 11:52; Status DC Epinephrine HCl (EPINEPHrine (1:10,000) INJ) 1 mg STK-MED ONCE .ROUTE ; Start at 11:52; Stop 10/20/17 at 11:53; Status DC Regadenoson (Lexiscan Inj) 0.4 mg STK-MED ONCE .ROUTE Last administered on at 12:06; Start 10/20/17 at 12:06; Stop 10/20/17 at 12:07; Status DC Midazolam HCl (Versed Inj) 2 mg STK-MED ONCE .ROUTE ; Start 10/21/17 at 11:09; Stop 10/21/17 at 11:10; Status DC Verapamil HCl (Isoptin Inj) 5 mg STK-MED ONCE .ROUTE ; Start 10/21/17 at 11:10; Stop 10/21/17 at 11:11; Status DC Heparin Sodium (Porcine) (Heparin Inj) 10,000 units STK-MED ONCE .ROUTE ; Start 10/21/17 at 11:10; Stop 10/21/17 at 11:11; Status DC Nitroglycerin 5 ml @ As Directed STK-MED ONCE .ROUTE ; Start 10/21/17 at 11:10; Stop 10/21/17 at 11:11; Status DC Miscellaneous Information 1 ONCE ONCE XX ; Start 10/21/17 at 12:00; Stop at 12:05; Status DC Sodium Chloride (NS Flush) 2 ml BID IV FLUSH ; Start 10/21/17 at 21:00; Stop 10/21 at 21:00; Status DC Sodium Chloride (NS Flush) 2 ml UNSCH PRN IV FLUSH FLUSH AFTER USING IV ACCESS ; Start 10/21/17 at 12:00; Stop 10/21/17 at 12:06; Status DC Sodium Chloride 1,000 ml @ 100 mls/hr Q10H IV ; Start 10/21/17 at 11:58; Stop at 19:57 Bacitracin (Bacitracin Oint Packet) 0.9 gm ONCE ONCE TOP ; Start 10/21/17 at 12: 00; Stop 10/21/17 at 12:05; Status DC Iohexol (OMNIPAQUE 350 INJ (Regulatory Compliance Director)) 100 ml STK-MED ONCE OTHER ; Start at 12:14; Stop 10/21/17 at 12:15; Status DC A/P Problem List: (1) Bradycardia ICD Code: R00.1 - Bradycardia, unspecified Status: Acute (2) TIA (transient ischemic attack) ICD Code: G45.9 - Transient cerebral ischemic attack, unspecified (3) CHF (congestive heart failure) ICD Code: I50.9 - Heart failure, unspecified Status: Acute (4) Elevated troponin ICD Code: R74.8 - Abnormal levels of other serum enzymes (5) Renal insufficiency ICD Code: N28.9 - Disorder of kidney and ureter, unspecified (6) DM (diabetes mellitus) ICD Code: E11.9 - Type 2 diabetes mellitus without complications Assessment and Plan This is a 87-year-old male who presented with VT Ventricular arrhythmias -Reinforcing Metal Worker consulted. Being managed by senior restaurant manager. Patient on metoprolol. Patient had cardiac catheterization done today which shows nonobstructing coronary disease. -Dr. Gunn consulted for EP evaluation. A-fib w/ SVR/Bradycardia. -Initially on metoprolol but that was decreased. -Echo 10/14/17 w/ EF 50-55%. CHF: Acute on Chronic. Systolic/Diastolic. - Echo 10/14/17 w/ EF 50-55%, improved from previous Echo 11/03/15 w/ EF 40-45%. +lower extremity edema. CXR w/ no acute findings, images reviewed by me. Monitor I/O. -Continue with home diuresing. Elevated Trop: Trop 0.07, EKG w/ no acute ischemia. No c/o chest pain, possibly related to combination of Dysrhythmia and CHF. Trop 0.06 per review of labs from [facility] on 10/14/17. -Troponins remained flat. -Cardiac catheterization done on 10/21/2017 showed nonobstructing coronary disease. TIA: transient facial droop/weakness, now completely resolved - likely secondary to episode of bradycardia w/ hypoperfusion, however r/o TIA. CT Head w/ no acute findings. MRI of the brain shows no acute ischemia. Carotid ultrasound shows no significant stenosis. -Continue ASA, Statin. Renal Insufficiency: Acute on Chronic. -Creatinine 1.85, previously 1.49 on 11/05/15. Caution with IVF in light of CHF. Repeat labs in a.m. -Creatinine 1.4. Resolved. DM: Sliding scale with Accu-Cheks. DVT Prophylaxis: On Eliquis Discharge Planning Patient will need an EP evaluation. Once patient is medically stable for discharge she will go home with home health. Yvette Gunderson MD Oct 21, 2017 14:13
[2017-10-21] MEDS: MELATONIN 5 MG TAB PO SCH (20:47)
[2017-10-21] MEDS: TAMSULOSIN HCL 0.4 MG CAP PO SCH (20:47)
[2017-10-21] MEDS: MIRTAZAPINE 15 MG TAB PO SCH (20:47)
[2017-10-21] MEDS: ATORVASTATIN 40 MG TAB PO SCH (20:47)
[2017-10-21] MEDS ORDERED: SODIUM CHLORIDE 0.9% FLUSH 10 ML FLUSH IV FLUSH SCH (21:00)
[2017-10-22] VITALS (27 sets, daily range): BP systolic 109–131; BP diastolic 67–83; PULSE 66–100; RESP 18–20; TEMP 97.6–98.5; O2SAT 92–98
[2017-10-22 06:34] LABS: AUTOMATED NEUTROPHIL # 3.3 TH/MM3 (1.8-7.7); BASOPHIL % 0.4 % (0.0-2.0); EOSINOPHIL # 0.2 TH/MM3 (0-0.4); EOSINOPHIL % 4.5 % (0.0-4.0); HEMATOCRIT 30.4 % (39.0-51.0); HEMOGLOBIN 10.2 GM/DL (13.0-17.0); LYMPH % 19.6 % (9.0-44.0); MEAN CELL VOLUME 99.7 FL (80.0-100.0); MEAN CORPUSCULAR HEMOGLOBIN 33.4 PG (27.0-34.0); MEAN CORPUSCULAR HGB CONC 33.5 % (32.0-36.0); MEAN PLATELET VOLUME 8.3 FL (7.0-11.0); MONO % 12.3 % (0.0-8.0); MONOCYTE # 0.6 TH/MM3 (0-0.9); NEUT % 63.2 % (16.0-70.0); PLATELET COUNT 153 TH/MM3 (150-450); RED BLOOD COUNT 3.05 MIL/MM3 (4.50-5.90); RED CELL DISTRIBUTION WIDTH 15.6 % (11.6-17.2); WHITE BLOOD COUNT 5.3 TH/MM3 (4.0-11.0)
[2017-10-22 06:53] LABS: BICARBONATE 31.7 MEQ/L (21.0-32.0); CREATININE 1.27 MG/DL (0.60-1.30); MAGNESIUM 2.2 MG/DL (1.5-2.5)
--- NOTE | 2017-10-22 07:02 | EKG ---
Date Performed: 10/21/2017 Time Performed: 10:09:34 PTAGE: 87 years EKG: Sinus rhythm WITH 1ST DEGREE AV BLOCK LEFT ANTERIOR FASCICULAR BLOCK Abnormal ECG Since PREVIOUS TRACING , no significant change noted PREVIOUS TRACIN10/18/2017 16.40 DOCTOR: Jr Terry Interpretating Date/Time 10/22/2017 07:01:36
[2017-10-22] MEDS: FINASTERIDE 5 MG TAB PO SCH (08:58)
[2017-10-22] MEDS: ASPIRIN 81 MG CHEW TAB PO SCH (08:59)
[2017-10-22] MEDS: TORSEMIDE 20 MG TAB PO SCH (08:59)
[2017-10-22] MEDS: MULTIVITAMIN TAB PO SCH (08:59)
[2017-10-22] MEDS: DOCUSATE SODIUM 50 MG/SENNA 8.6 MG TAB PO SCH ×2 (08:59→20:41)
[2017-10-22] MEDS: SODIUM CHLORIDE 0.9% FLUSH 10 ML FLUSH IV FLUSH SCH ×2 (09:00→20:41)
--- NOTE | 2017-10-22 14:42 | HHI.PR ---
Subjective Remarks Patient had some intermittent short runs of VT overnight and today. He denies any shortness of breathing, chest pain, palpitation, lightheadedness dizziness. He stated he saw Dr. Gunn last night. His and 2 sons at the bedside in the interview. Patient stated that he is walking around. Objective Vitals Vital Signs Date Time Temp Pulse Resp B/P (MAP) Pulse Ox O2 Delivery O2 Flow Rate FiO2 10/22/17 12:05 98.5 70 18 109/67 (81) 94 10/22/17 08:57 98.0 80 19 130/83 (99) 94 10/22/17 06:00 66 10/22/17 05:00 70 10/22/17 04:00 68 10/22/17 04:00 97.8 79 20 125/78 (94) 95 10/22/17 03:00 92 10/22/17 02:00 79 10/22/17 01:00 78 10/22/17 00:00 80 10/22/17 00:00 97.9 85 20 131/79 (96) 95 10/21/17 23:00 77 10/21/17 22:00 80 10/21/17 21:00 80 10/21/17 20:00 80 10/21/17 20:00 97.7 79 20 133/79 (97) 99 10/21/17 19:00 82 10/21/17 18:00 74 10/21/17 17:00 78 10/21/17 16:00 72 10/21/17 15:30 74 18 99/51 (67) 98 10/21/17 15:30 58 I/O 10/21/17 10/21/17 10/21/17 10/22/17 10/22/17 10/22/17 07:00 15:00 23:00 07:00 15:00 23:00 Intake Total 480 ml 1400 ml 640 ml Output Total 625 ml 750 ml 550 ml Balance -145 ml 650 ml 90 ml Intake Oral 480 ml 800 ml 240 ml IV Total 600 ml 400 ml Output Urine Total 625 ml 750 ml 550 ml # Bowel Movements 1 Result Diagram: 10/22/17 0529 10/22/17 05 Objective Remarks GENERAL: in NAD CARDIOVASCULAR: Regular rate and rhythm without murmurs, gallops, or rubs. RESPIRATORY: Breath sounds equal bilaterally. No accessory muscle use. GASTROINTESTINAL: Abdomen soft, non-tender, nondistended. MUSCULOSKELETAL: No cyanosis, or edema. BACK: Nontender without obvious deformity. No CVA tenderness. Medications and IVs Current Medications Sodium Chloride (NS Flush) 2 ml UNSCH PRN IVF FLUSH AFTER USING IV ACCESS; Start 10/18/17 at 17:00 Sodium Chloride (NS Flush) 2 ml UNSCH PRN IV FLUSH FLUSH AFTER USING IV ACCESS ; Start 10/18/17 at 20:00 Sodium Chloride (NS Flush) 2 ml BID IV FLUSH Last administered on 10/22/17at 09: 00; Start 10/18/17 at 21:00 Ondansetron HCl (Zofran Inj) 4 mg Q6H PRN IVP NAUSEA OR VOMITING; Start at 20:00 Acetaminophen (Tylenol) 650 mg Q6H PRN PO FEVER/PAIN SCALE 1 TO 2; Start at 20:00 Acetaminophen/ Hydrocodone Bitart ([place] 5-325 Mg) 1 tab Q4H PRN PO PAIN SCALE 3 TO 5 Last administered on 10/21/17at 23:27; Start 10/18/17 at 20:00 Morphine Sulfate (Morphine Inj) 2 mg Q3H PRN IV PUSH Pain 6-10; Start 10/18/17 at 20:00 Senna/Docusate Sodium (Tammy-Colace) 1 tab BID PO Last administered on 10/22/17at 08:59; Start 10/18/17 at 21:00 Magnesium Hydroxide (Milk Of Magnesia Liq) 30 ml Q12H PRN PO Mild constipation ; Start 10/18/17 at 20:00 Sennosides (Senokot) 17.2 mg Q12H PRN PO Moderate constipation; Start 10/18/17 at 20:00 Bisacodyl (Dulcolax Supp) 10 mg DAILY PRN RECTAL SEVERE CONSITIPATION; Start at 20:00 Lactulose (Lactulose Liq) 30 ml DAILY PRN PO SEVERE CONSITIPATION; Start at 20:00 Apixaban (Eliquis) 5 mg BID PO Last administered on 10/19/17at 21:46; Start at 21:00; Stop 10/20/17 at 10:01; Status DC Aspirin (Aspirin) 325 mg DAILY PO Last administered on 10/19/17 08:39; Start at 09:00; Stop 10/19/17 at 13:03; Status DC Atorvastatin Calcium (Lipitor) 40 mg HS PO Last administered on 10/21/17 20:47 ; Start 10/18/17 at 21:00 Finasteride (Proscar) 5 mg DAILY PO Last administered on 10/22/17 08:58; Start 10/19/17 at 09:00 Mirtazapine (Remeron) 15 mg HS PO Last administered on 10/21/17 20:47; Start at 21:00 Tamsulosin HCl (Flomax) 0.4 mg HS PO Last administered on 10/21/17 20:47; Start 10/18/17 at 21:00 Torsemide (Demadex) 20 mg DAILY PO Last administered on 10/22/17 08:59; Start 10/19/17 at 09:00 Melatonin (Melatonin) 2.5 mg HS PO Last administered on 10/21/17 20:47; Start 10/18/17 at 21:00 Multivitamins (Theragran) 1 tab DAILY PO Last administered on 10/22/17 08:59; Start 10/19/17 at 09:00 Apixaban (Eliquis) 5 mg BID PO ; Start 10/19/17 at 21:00; Stop 10/19/17 at 21:00; Status DC Aspirin (Aspirin Chew) 81 mg DAILY PO Last administered on 10/22/17 08:59; Start 10/20/17 at 09:00 Metoprolol Tartrate (Lopressor) 25 mg Q12HR PO Last administered on 10/20/17 09 :28; Start 10/19/17 at 21:00; Stop 10/20/17 at 14:59; Status DC Atropine Sulfate (Atropine Inj) 1 mg STK-MED ONCE .ROUTE ; Start 10/20/17 at 11: 51; Stop 10/20/17 at 11:52; Status DC Epinephrine HCl (EPINEPHrine (1:10,000) INJ) 1 mg STK-MED ONCE .ROUTE ; Start at 11:52; Stop 10/20/17 at 11:53; Status DC Regadenoson (Lexiscan Inj) 0.4 mg STK-MED ONCE .ROUTE Last administered on at 12:06; Start 10/20/17 at 12:06; Stop 10/20/17 at 12:07; Status DC Midazolam HCl (Versed Inj) 2 mg STK-MED ONCE .ROUTE Last administered on at 11:09; Start 10/21/17 at 11:09; Stop 10/21/17 at 11:10; Status DC Verapamil HCl (Isoptin Inj) 5 mg STK-MED ONCE .ROUTE Last administered on at 11:10; Start 10/21/17 at 11:10; Stop 10/21/17 at 11:11; Status DC Heparin Sodium (Porcine) (Heparin Inj) 10,000 units STK-MED ONCE .ROUTE Last administered on 10/21/17at 11:10; Start 10/21/17 at 11:10; Stop 10/21/17 at 11:11; Status DC Nitroglycerin 5 ml @ As Directed STK-MED ONCE .ROUTE Last administered on at 11:10; Start 10/21/17 at 11:10; Stop 10/21/17 at 11:11; Status DC Miscellaneous Information 1 ONCE ONCE XX ; Start 10/21/17 at 12:00; Stop at 12:05; Status DC Sodium Chloride (NS Flush) 2 ml BID IV FLUSH ; Start 10/21/17 at 21:00; Stop 10/21 at 21:00; Status DC Sodium Chloride (NS Flush) 2 ml UNSCH PRN IV FLUSH FLUSH AFTER USING IV ACCESS ; Start 10/21/17 at 12:00; Stop 10/21/17 at 12:06; Status DC Sodium Chloride 1,000 ml @ 100 mls/hr Q10H IV Last administered on 10/21/17at 12 :30; Start 10/21/17 at 11:58; Stop 10/21/17 at 19:57; Status DC Bacitracin (Bacitracin Oint Packet) 0.9 gm ONCE ONCE TOP ; Start 10/21/17 at 12: 00; Stop 10/21/17 at 12:05; Status DC Iohexol (OMNIPAQUE 350 INJ (Machine Clerical Verifier)) 100 ml STK-MED ONCE OTHER ; Start at 12:14; Stop 10/21/17 at 12:15; Status DC A/P Problem List: (1) Bradycardia ICD Code: R00.1 - Bradycardia, unspecified Status: Acute (2) TIA (transient ischemic attack) ICD Code: G45.9 - Transient cerebral ischemic attack, unspecified (3) CHF (congestive heart failure) ICD Code: I50.9 - Heart failure, unspecified Status: Acute (4) Elevated troponin ICD Code: R74.8 - Abnormal levels of other serum enzymes (5) Renal insufficiency ICD Code: N28.9 - Disorder of kidney and ureter, unspecified (6) DM (diabetes mellitus) ICD Code: E11.9 - Type 2 diabetes mellitus without complications Assessment and Plan This is a 87-year-old male who presented with VT Ventricular arrhythmias -Tree Driller consulted. Being managed by order entry representative. Patient on metoprolol. Patient had cardiac catheterization done today which shows nonobstructing coronary disease. -Dr. Gunn consulted for EP evaluation pending consult. Patient did have intermittent short runs of VT. Management per Dr. Gunn. Electrolytes reviewed today all within normal limits. A-fib w/ SVR/Bradycardia. -Initially on metoprolol but that was decreased. -Echo 10/14/17 w/ EF 50-55%. CHF: Acute on Chronic. Systolic/Diastolic. - Echo 10/14/17 w/ EF 50-55%, improved from previous Echo 11/03/15 w/ EF 40-45%. +lower extremity edema. CXR w/ no acute findings, images reviewed by me. Monitor I/O. -Continue with home diuresing. Elevated Trop: Trop 0.07, EKG w/ no acute ischemia. No c/o chest pain, possibly related to combination of Dysrhythmia and CHF. Trop 0.06 per review of labs from [facility] on 10/14/17. -Troponins remained flat. -Cardiac catheterization done on 10/21/2017 showed nonobstructing coronary disease. TIA: transient facial droop/weakness, now completely resolved - likely secondary to episode of bradycardia w/ hypoperfusion, however r/o TIA. CT Head w/ no acute findings. MRI of the brain shows no acute ischemia. Carotid ultrasound shows no significant stenosis. -Continue ASA, Statin. Renal Insufficiency: Acute on Chronic. -Creatinine 1.85, previously 1.49 on 11/05/15. Caution with IVF in light of CHF. Repeat labs in a.m. -Creatinine 1.4. Resolved. DM: Sliding scale with Accu-Cheks. DVT Prophylaxis: On Eliquis Discharge Planning Pending recommendations from Dr. Gunn. He did have intermittent short runs of VT since last night. He may need a EP study. Yvette Gunderson MD Oct 22, 2017 14:42
[2017-10-22] MEDS: MIRTAZAPINE 15 MG TAB PO SCH (20:40)
[2017-10-22] MEDS: TAMSULOSIN HCL 0.4 MG CAP PO SCH (20:40)
[2017-10-22] MEDS: ATORVASTATIN 40 MG TAB PO SCH (20:41)
[2017-10-22] MEDS: MELATONIN 5 MG TAB PO SCH (20:41)
--- NOTE | 2017-10-22 22:51 | HHI.PR ---
Subjective Remarks Feeling bettere Objective Vital Signs Date Time Temp Pulse Resp B/P (MAP) Pulse Ox O2 Delivery O2 Flow Rate FiO2 10/22/17 18:00 80 10/22/17 17:00 76 10/22/17 16:00 80 10/22/17 15:47 98.4 82 19 109/67 (81) 98 10/22/17 15:00 78 10/22/17 14:00 80 10/22/17 13:00 84 10/22/17 12:05 98.5 70 18 109/67 (81) 94 10/22/17 12:00 94 10/22/17 11:00 79 10/22/17 10:00 100 10/22/17 09:00 86 10/22/17 08:57 98.0 80 19 130/83 (99) 94 10/22/17 08:00 82 10/22/17 07:00 68 10/22/17 06:00 66 10/22/17 05:00 70 10/22/17 04:00 68 10/22/17 04:00 97.8 79 20 125/78 (94) 95 10/22/17 03:00 92 10/22/17 02:00 79 10/22/17 01:00 78 10/22/17 00:00 80 10/22/17 00:00 97.9 85 20 131/79 (96) 95 10/21/17 23:00 77 I/O 10/21/17 10/21/17 10/21/17 10/22/17 10/22/17 10/22/17 07:00 15:00 23:00 07:00 15:00 23:00 Intake Total 480 ml 1400 ml 640 ml 480 ml Output Total 625 ml 750 ml 550 ml 550 ml Balance -145 ml 650 ml 90 ml -70 ml Intake Oral 480 ml 800 ml 240 ml 480 ml IV Total 600 ml 400 ml Output Urine Total 625 ml 750 ml 550 ml 550 ml # Bowel Movements 1 2 Result Diagram: 10/22/17 0529 10/22/17 0529 Imaging Alert, fully oriented Lungs: ventilated Heart: S1, S2 regular, no gallop Abdomen: soft, no mass Ext: no edema Last Impressions Myocardial Perfusion Scan Nuc Med 10/19/17 0000 Signed Impressions: Service Date/Time: Thursday, October 19, 2017 16:09 - CONCLUSION: Ejection fraction 30%%. Negative for stress-induced ischemia RISK CATEGORY: High (>3%% Annual Mortality Rate) Artur Bacon MD FACR Carotid Artery Ultrasound 10/19/17 0000 Signed Impressions: Service Date/Time: Thursday, October 19, 2017 17:23 - CONCLUSION: 1. No evidence for hemodynamically significant stenosis of either carotid artery. 2. Antegrade flow in the vertebral arteries identified. Adonis Rubio MD Brain MRI 10/19/17 0000 Signed Impressions: Service Date/Time: Thursday, October 19, 2017 10:09 - CONCLUSION: Marked periventricular white matter changes central and cortical atrophy, No restricted diffusion to suggest acute ischemic event. Artur Bacon MD FACR Head CT 10/18/17 165 Signed Impressions: Service Date/Time: Wednesday, October 18, 2017 18:44 - CONCLUSION: No significant change has occurred. Adonis Rubio MD Chest X-Ray [id number] Signed Impressions: Service Date/Time: Wednesday, October 18, 2017 17:21 - CONCLUSION: No acute disease. Adonis Rubio MD Current Medications Medications (Trade) Dose Ordered Sig/Terese Route Start Time Stop Time Status Last Admin (NS Flush) 2 ml UNSCH PRN IV FLUSH 10/18/17 20:00 (NS Flush) 2 ml BID IV FLUSH 10/18/17 21:00 10/22/17 20:41 (Zofran Inj) 4 mg Q6H PRN IVP 10/18/17 20:00 (Tylenol) 650 mg Q6H PRN PO 10/18/17 20:00 (Chloride 5-325 Mg) 1 tab Q4H PRN PO 10/18/17 20:00 10/21/17 23:27 (Morphine Inj) 2 mg Q3H PRN IV PUSH 10/18/17 20:00 (Tammy-Colace) 1 tab BID PO 10/18/17 21:00 10/22/17 08:59 (Milk Of Magnesia Liq) 30 ml Q12H PRN PO 10/18/17 20:00 (Senokot) 17.2 mg Q12H PRN PO 10/18/17 20:00 (Dulcolax Supp) 10 mg DAILY PRN RECTAL 10/18/17 20:00 (Lactulose Liq) 30 ml DAILY PRN PO 10/18/17 20:00 (Lipitor) 40 mg HS PO 10/18/17 21:00 10/22/17 20:41 (Proscar) 5 mg DAILY PO 10/19/17 09:00 10/22/17 08:58 (Remeron) 15 mg HS PO 10/18/17 21:00 10/22/17 20:40 (Flomax) 0.4 mg HS PO 10/18/17 21:00 10/22/17 20:40 (Demadex) 20 mg DAILY PO 10/19/17 09:00 10/22/17 08:59 (Melatonin) 2.5 mg HS PO 10/18/17 21:00 10/22/17 20:41 (Theragran) 1 tab DAILY PO 10/19/17 09:00 10/22/17 08:59 (Aspirin Chew) 81 mg DAILY PO 10/20/17 09:00 10/22/17 08:59 (Betapace) 80 mg Q12HR PO 10/22/17 22:45 Assessment and Plan Problem List: (1) Ventricular arrhythmia ICD Codes: I49.9 - Cardiac arrhythmia, unspecified Plan: No significant episode recorded today Normal Ef Creatinine improved Sotalol will be initiated If no significant jordon observed, patient can be DH tomorrow afternoon Case discussed with patient (2) Systolic CHF ICD Codes: I50.20 - Unspecified systolic (congestive) heart failure Status: Acute Plan: Normal EF Megan Gunn MD Oct 22, 2017 22:51
[2017-10-23] VITALS (20 sets, daily range): BP systolic 107–129; BP diastolic 58–79; PULSE 52–82; RESP 17; TEMP 97.6–98.2; O2SAT 92–97
[2017-10-23] MEDS: SOTALOL HCL 80 MG TAB PO SCH ×2 (00:52→10:30)
[2017-10-23] MEDS: DOCUSATE SODIUM 50 MG/SENNA 8.6 MG TAB PO SCH (09:00)
[2017-10-23] MEDS: MULTIVITAMIN TAB PO SCH (10:29)
[2017-10-23] MEDS: TORSEMIDE 20 MG TAB PO SCH (10:29)
[2017-10-23] MEDS: ASPIRIN 81 MG CHEW TAB PO SCH (10:35)
[2017-10-23] MEDS: SODIUM CHLORIDE 0.9% FLUSH 10 ML FLUSH IV FLUSH SCH (10:36)
[2017-10-23] MEDS: FINASTERIDE 5 MG TAB PO SCH (10:36)
--- NOTE | 2017-10-23 11:16 | MB ---
cc: Megan Gunn MD DATE OF CONSULT: 10/21/2017 REASON FOR CONSULTATION: Burst of nonsustained ventricular tachyarrhythmia. HISTORY OF PRESENT ILLNESS: Mr. Gaspar is an 87-year-old gentleman with history of aortic valve replacement. The patient has a bovine valve. He has a normal ejection fraction. He has . He was admitted due to mental status change. During hospitaization, some 2-3 seconds of rapid ventricular arrhythmia was noted. Left heart cardiac catheterization was performed by Dr. Terry that indicated no significant occlusion and normal ejection fraction. I was consulted for evaluation and management. The chart was reviewed. The patient was evaluated. ALLERGIES: NONE REPORTED. SOCIAL HISTORY: Negative for smoking and drinking. FAMILY HISTORY: Noncontributory to his medical condition. MEDICATIONS: The patient was on acetaminophen, Lipitor, Proscar, melatonin, remeron and multivitamin. REVIEW OF SYSTEMS: The patient with no chest pain, no chest discomfort. some dizziness. No fever. PHYSICAL EXAMINATION: GENERAL: Alert, fully oriented. VITAL SIGNS: His blood pressure on evaluation is 99/51, pulse 58, respiratory rate 18, GENERAL: Lying in bed. CARDIOVASCULAR: S1, S2, regular. ABDOMEN: Soft, no mass. LOWER EXTREMITIES: With no edema. STUDY: Echocardiogram indicates sinus rhythm. Intraventricular conduction delayed. Diffuse ST changes. LABORATORY DATA: Hemoglobin is 10.3, white blood cell 4.8, potassium 4.6, creatinine 148, but coming down from 185. Troponin 0.01. ASSESSMENT AND RECOMMENDATIONS: Mr. Gaspar has a normal ejection fraction. He has some bradycardia. I am not sure these episode are symptomatic. He has a left heart catheterization by Dr. Terry, that indicated no occlusion. I discussed the case extensively with Dr. Terry. The arrhythmia may be coming close by the ring of the valve. This is a situation that is going to be very difficult to operate. Also, he will require . At this point, the best medical management. Because the patient's creatinine is still high, I am going to wait before initiate sotalol. Case extensively discussed with the patient and family. I will monitor him during hospitalization. If sotalol does not work as an outpatient, amiodarone can be initiated. No need for device at this point. MD VIKRAM Lovell , 10:49 PM , 11:51 PM
--- NOTE | 2017-10-23 14:16 | HHI.PR ---
Subjective Remarks Follow-up for ventricular arrhythmias Patient has no complaints. He says he is doing well. He said that he is walking the hallways without any difficulty. Denies any shortness of breathing , chest pain, palpitation, lightheaded dizziness. Discussed case with patient's nurse. Objective Vitals Vital Signs Date Time Temp Pulse Resp B/P (MAP) Pulse Ox O2 Delivery O2 Flow Rate FiO2 10/23/17 13:00 60 10/23/17 12:00 54 10/23/17 11:00 57 10/23/17 10:38 98.0 61 107/58 (74) 96 10/23/17 10:00 58 10/23/17 09:00 62 10/23/17 08:17 98.0 57 17 113/67 (82) 93 10/23/17 08:00 52 10/23/17 07:00 59 10/23/17 05:29 78 10/23/17 04:00 57 10/23/17 03:42 57 10/23/17 03:00 97.6 68 129/79 (96) 92 10/23/17 02:00 64 10/23/17 01:00 74 10/23/17 00:00 82 10/22/17 23:00 82 10/22/17 23:00 97.6 86 124/72 (89) 92 10/22/17 22:00 92 10/22/17 21:00 82 10/22/17 20:00 86 10/22/17 20:00 97.7 83 129/74 (92) 96 10/22/17 19:00 85 10/22/17 18:00 80 10/22/17 17:00 76 10/22/17 16:00 80 10/22/17 15:47 98.4 82 19 109/67 (81) 98 10/22/17 15:00 78 I/O 10/22/17 10/22/17 10/22/17 10/23/17 10/23/17 10/23/17 07:00 15:00 23:00 07:00 15:00 23:00 Intake Total 640 ml 480 ml 240 ml Output Total 550 ml 550 ml 500 ml Balance 90 ml -70 ml -260 ml Intake Oral 240 ml 480 ml 240 ml IV Total 400 ml Output Urine Total 550 ml 550 ml 500 ml # Bowel Movements 2 Result Diagram: 10/22/1752810/22/17528 Objective Remarks GENERAL: in NAD CARDIOVASCULAR: Regular rate and rhythm without murmurs, gallops, or rubs. RESPIRATORY: Breath sounds equal bilaterally. No accessory muscle use. GASTROINTESTINAL: Abdomen soft, non-tender, nondistended. MUSCULOSKELETAL: No cyanosis, or edema. BACK: Nontender without obvious deformity. No CVA tenderness. Medications and IVs Current Medications Sodium Chloride (NS Flush) 2 ml UNSCH PRN IVF FLUSH AFTER USING IV ACCESS; Start 10/18/17 at 17:00; Stop 10/22/17 at 22:44; Status DC Sodium Chloride (NS Flush) 2 ml UNSCH PRN IV FLUSH FLUSH AFTER USING IV ACCESS ; Start 10/18/17 at 20:00 Sodium Chloride (NS Flush) 2 ml BID IV FLUSH Last administered on 10/23/17at 10: 36; Start 10/18/17 at 21:00 Ondansetron HCl (Zofran Inj) 4 mg Q6H PRN IVP NAUSEA OR VOMITING; Start at 20:00 Acetaminophen (Tylenol) 650 mg Q6H PRN PO FEVER/PAIN SCALE 1 TO 2; Start at 20:00 Acetaminophen/ Hydrocodone Bitart ([place] 5-325 Mg) 1 tab Q4H PRN PO PAIN SCALE 3 TO 5 Last administered on 10/21/17at 23:27; Start 10/18/17 at 20:00 Morphine Sulfate (Morphine Inj) 2 mg Q3H PRN IV PUSH Pain 6-10; Start 10/18/17 at 20:00 Senna/Docusate Sodium (Tammy-Colace) 1 tab BID PO Last administered on 10/22/17at 08:59; Start 10/18/17 at 21:00 Magnesium Hydroxide (Milk Of Magnesia Liq) 30 ml Q12H PRN PO Mild constipation ; Start 10/18/17 at 20:00 Sennosides (Senokot) 17.2 mg Q12H PRN PO Moderate constipation; Start 10/18/17 at 20:00 Bisacodyl (Dulcolax Supp) 10 mg DAILY PRN RECTAL SEVERE CONSITIPATION; Start at 20:00 Lactulose (Lactulose Liq) 30 ml DAILY PRN PO SEVERE CONSITIPATION; Start at 20:00 Apixaban (Eliquis) 5 mg BID PO Last administered on 10/19/17 21:46; Start at 21:00; Stop 10/20/17 at 10:01; Status DC Aspirin (Aspirin) 325 mg DAILY PO Last administered on 10/19/17 08:39; Start at 09:00; Stop 10/19/17 at 13:03; Status DC Atorvastatin Calcium (Lipitor) 40 mg HS PO Last administered on 10/22/17 20:41 ; Start 10/18/17 at 21:00 Finasteride (Proscar) 5 mg DAILY PO Last administered on 10/23/17 10:36; Start 10/19/17 at 09:00 Mirtazapine (Remeron) 15 mg HS PO Last administered on 10/22/17 20:40; Start at 21:00 Tamsulosin HCl (Flomax) 0.4 mg HS PO Last administered on 10/22/17 20:40; Start 10/18/17 at 21:00 Torsemide (Demadex) 20 mg DAILY PO Last administered on 10/23/17 10:29; Start 10/19/17 at 09:00 Melatonin (Melatonin) 2.5 mg HS PO Last administered on 10/22/17 20:41; Start 10/18/17 at 21:00 Multivitamins (Theragran) 1 tab DAILY PO Last administered on 10/23/17 10:29; Start 10/19/17 at 09:00 Apixaban (Eliquis) 5 mg BID PO ; Start 10/19/17 at 21:00; Stop 10/19/17 at 21:00; Status DC Aspirin (Aspirin Chew) 81 mg DAILY PO Last administered on 10/23/17 10:35; Start 10/20/17 at 09:00 Metoprolol Tartrate (Lopressor) 25 mg Q12HR PO Last administered on 10/20/17at 09 :28; Start 10/19/17 at 21:00; Stop 10/20/17 at 14:59; Status DC Atropine Sulfate (Atropine Inj) 1 mg STK-MED ONCE .ROUTE ; Start 10/20/17 at 11: 51; Stop 10/20/17 at 11:52; Status DC Epinephrine HCl (EPINEPHrine (1:10,000) INJ) 1 mg STK-MED ONCE .ROUTE ; Start at 11:52; Stop 10/20/17 at 11:53; Status DC Regadenoson (Lexiscan Inj) 0.4 mg STK-MED ONCE .ROUTE Last administered on at 12:06; Start 10/20/17 at 12:06; Stop 10/20/17 at 12:07; Status DC Midazolam HCl (Versed Inj) 2 mg STK-MED ONCE .ROUTE Last administered on at 11:09; Start 10/21/17 at 11:09; Stop 10/21/17 at 11:10; Status DC Verapamil HCl (Isoptin Inj) 5 mg STK-MED ONCE .ROUTE Last administered on at 11:10; Start 10/21/17 at 11:10; Stop 10/21/17 at 11:11; Status DC Heparin Sodium (Porcine) (Heparin Inj) 10,000 units STK-MED ONCE .ROUTE Last administered on 10/21/17at 11:10; Start 10/21/17 at 11:10; Stop 10/21/17 at 11:11; Status DC Nitroglycerin 5 ml @ As Directed STK-MED ONCE .ROUTE Last administered on at 11:10; Start 10/21/17 at 11:10; Stop 10/21/17 at 11:11; Status DC Miscellaneous Information 1 ONCE ONCE XX ; Start 10/21/17 at 12:00; Stop at 12:05; Status DC Sodium Chloride (NS Flush) 2 ml BID IV FLUSH ; Start 10/21/17 at 21:00; Stop 10/21 at 21:00; Status DC Sodium Chloride (NS Flush) 2 ml UNSCH PRN IV FLUSH FLUSH AFTER USING IV ACCESS ; Start 10/21/17 at 12:00; Stop 10/21/17 at 12:06; Status DC Sodium Chloride 1,000 ml @ 100 mls/hr Q10H IV Last administered on 10/21/17at 12 :30; Start 10/21/17 at 11:58; Stop 3/6/18 at 19:57; Status DC Bacitracin (Bacitracin Oint Packet) 0.9 gm ONCE ONCE TOP ; Start 10/21/17 at 12: 00; Stop 10/21/17 at 12:05; Status DC Iohexol (OMNIPAQUE 350 INJ (Basting Puller)) 100 ml STK-MED ONCE OTHER ; Start at 12:14; Stop 10/21/17 at 12:15; Status DC Sotalol HCl (Betapace) 80 mg Q12HR PO Last administered on 10/23/17at 10:30; Start 10/22/17 at 22:45 A/P Problem List: (1) Bradycardia ICD Code: R00.1 - Bradycardia, unspecified Status: Acute (2) TIA (transient ischemic attack) ICD Code: G45.9 - Transient cerebral ischemic attack, unspecified (3) CHF (congestive heart failure) ICD Code: I50.9 - Heart failure, unspecified Status: Acute (4) Elevated troponin ICD Code: R74.8 - Abnormal levels of other serum enzymes (5) Renal insufficiency ICD Code: N28.9 - Disorder of kidney and ureter, unspecified (6) DM (diabetes mellitus) ICD Code: E11.9 - Type 2 diabetes mellitus without complications Assessment and Plan This is a 87-year-old male who presented with VT Ventricular arrhythmias -Wood Grinder consulted. Being managed by sld inclusion teacher. Patient had cardiac catheterization done today which shows nonobstructing coronary disease. -Dr. Gunn started patient on sotalol. He stated that if there is not severe bradycardia possible discharge this afternoon. Heart rate running in the 50s low was 54. Spoke to nurse to call Dr. Gunn to see if this was okay for discharge. A-fib w/ SVR/Bradycardia. -On sotalol. -Echo 10/14/17 w/ EF 50-55%. CHF: Acute on Chronic. Systolic/Diastolic. - Echo 10/14/17 w/ EF 50-55%, improved from previous Echo 11/03/15 w/ EF 40-45%. +lower extremity edema. CXR w/ no acute findings, images reviewed by me. Monitor I/O. -Continue with home diuresing. Elevated Trop: Trop 0.07, EKG w/ no acute ischemia. No c/o chest pain, possibly related to combination of Dysrhythmia and CHF. Trop 0.06 per review of labs from [facility] on 10/14/17. -Troponins remained flat. -Cardiac catheterization done on 10/21/2017 showed nonobstructing coronary disease. TIA: transient facial droop/weakness, now completely resolved - likely secondary to episode of bradycardia w/ hypoperfusion, however r/o TIA. CT Head w/ no acute findings. MRI of the brain shows no acute ischemia. Carotid ultrasound shows no significant stenosis. -Continue ASA, Statin. Renal Insufficiency: Acute on Chronic. -Creatinine 1.85, previously 1.49 on 11/05/15. Caution with IVF in light of CHF. DM: Sliding scale with Accu-Cheks. DVT Prophylaxis: On Eliquis Discharge Planning On sotalol. Possible discharge if okay with Dr. Gunn. Yvette Gunderson MD Oct 23, 2017 14:16
--- NOTE | 2017-10-23 15:08 | HHI.FF ---
Face to Face Verification Diagnosis: (1) Ventricular arrhythmia (2) Coronary artery disease (3) CKD (chronic kidney disease) stage 3, GFR 30-59 ml/min (4) Atrial fibrillation (5) CHF (congestive heart failure) Physical Therapy Order: Evaluate and Treat, Improve ambulation, Strength and gait training Home Health Nursing Order: Medical education Signs/symptoms of disease process Diabetic education CHF education Medication education-adverse effect I have seen patient Reddy Gaspar on 10/23/17. My clinical findings support the need for the requested home health care services because: Ltd mobility - disease progression Deconditioned w/ increased weakness I certify that my clinical findings support that this patient is homebound because: Unsteady gait/balance Poor cardiac reserve Yvette Gunderson MD Oct 23, 2017 15:08
[2017-10-23] MEDS ORDERED: ASPI81 PO (15:12)
[2017-10-23] MEDS ORDERED: SOTA80 PO (15:12)
[2017-10-23] MEDS ORDERED: GLUCAGON 1 MG/ML VIAL OTHER PRN (15:30)
[2017-10-23] MEDS ORDERED: DEXTROSE 50% IN WATER 50 ML VIAL(D50) IV PUSH PRN (15:30)
[2017-10-23] MEDS ORDERED: INSULIN ASPART SUPPLEMENTAL SCALE SQ SCH (17:00)
--- NOTE | 2017-10-23 18:22 | HHI.DCPOC ---
Discharge Care Plan Diagnosis: (1) Ventricular arrhythmia (2) Atrial fibrillation (3) CKD (chronic kidney disease) stage 3, GFR 30-59 ml/min Goals to Promote Your Health * To prevent worsening of your condition and complications * To maintain your health at the optimal level Directions to Meet Your Goals Take your medications as prescribed Follow your dietary instruction Follow activity as directed Keep your appointments as scheduled Take your immunizations and boosters as scheduled If your symptoms worsen call your PCP, if no PCP go to Urgent Care Center or Emergency Room Smoking is Dangerous to Your Health. Avoid second hand smoke Call the 24-hour hour crisis hotline for domestic abuse at Yvette Gunderson MD Oct 23, 2017 18:22
--- NOTE | 2017-10-23 18:23 | HHI.DS ---
Discharge Summary Admission Date Oct 18, 2017 at 21:16 Admitting Diagnosis TIA, Sinus Bradycardia (1) Bradycardia ICD Code: R00.1 - Bradycardia, unspecified Status: Acute (2) TIA (transient ischemic attack) ICD Code: G45.9 - Transient cerebral ischemic attack, unspecified (3) CHF (congestive heart failure) ICD Code: I50.9 - Heart failure, unspecified Status: Acute (4) Elevated troponin ICD Code: R74.8 - Abnormal levels of other serum enzymes (5) Renal insufficiency ICD Code: N28.9 - Disorder of kidney and ureter, unspecified (6) DM (diabetes mellitus) ICD Code: E11.9 - Type 2 diabetes mellitus without complications Brief History - From Admission This is an 87-year-old male with a PMH of HTN, Hyperlipidemia, AVR, Afib on Eliquis, CHF (Echo 11/03/15 w/ EF 40-45%) and CAD who was referred to the ER by [facility] RN for bradycardia w/ HR 30's. Also reported to have episode of facial droop, slurred speech and generalized weakness, now completely resolved. Recent admit to [facility] 10/14-10/16/17 for similar episode of bradycardia. Able to obtain records from which I reviewed personally. Follows w/ Dr. Terry, seen by Dr. Aguayo during that admission, had minimally elevated Trop 0.06, Echo 10/15/17 w/ EF 50-55%, bradycardia thought to be due to Metoprolol, dosage decreased from 75mg bid to 25mg bid. Family states that pt was seen yesterday by PCP, HR 40-50's and Metoprolol decreased further to 12.5mg bid. Today, noted to have HR 30's as above. No chest pain, SOB or cough. Does note worsening lower extremity edema bilaterally. On arrival, BP 147/65, HR 79, O2 sat 99% on RA, Afebrile. HR has remained in the 70s to 80s while in ER. CBC at baseline. Creatinine 1.85, producing 1.49 on 11/05/15. Troponin 0.07. INR 1.2. UA negative. CXR with no acute findings. CT Head negative. CBC/BMP: 10/22/17 0529 10/22/17 0529 Significant Findings Laboratory Tests Test 10/21/17 05:29 10/22/17 05:29 Blood Urea Nitrogen 34 MG/DL (7-18) 27 MG/DL (7-18) Creatinine 1.48 MG/DL (0.60-1.30) Random Glucose 139 MG/DL (74-106) 122 MG/DL (74-106) Total Protein 6.2 GM/DL (6.4-8.2) Albumin 3.1 GM/DL (3.4-5.0) Carbon Dioxide Level 32.7 MEQ/L (21.0-32.0) Estimat Glomerular Filtration Rate 45 ML/MIN (>89) 54 ML/MIN (>89) Red Blood Count 3.05 MIL/MM3 (4.50-5.90) Hemoglobin 10.2 GM/DL (13.0-17.0) Hematocrit 30.4 % (39.0-51.0) Monocytes (%) (Auto) 12.3 % (0.0-8.0) Eosinophils (%) (Auto) 4.5 % (0.0-4.0) PE at Discharge GENERAL: in NAD CARDIOVASCULAR: Regular rate and rhythm without murmurs, gallops, or rubs. RESPIRATORY: Breath sounds equal bilaterally. No accessory muscle use. GASTROINTESTINAL: Abdomen soft, non-tender, nondistended. MUSCULOSKELETAL: No cyanosis, or edema. BACK: Nontender without obvious deformity. No CVA tenderness. Pt Condition on Discharge: Stable Discharge Disposition: Disch w/ Home Health Serv Discharge Instructions DIET: Follow Instructions for: Heart Healthy Diet, Diabetic Diet Activities you can perform: Regular-No Restrictions Yvette Gunderson MD Oct 23, 2017 18:23
== END 2017-10-23 19:15 | disposition home health service (06) | DRG 286 ==
LOC: NEPC 16:26 → NEDA 19:47 → OBSVTOIN 21:16 → HCIS 22:02
PROVIDERS: ADMIT Family Medicine; ATTEND Family Medicine
PROC: B2111ZZ Fluoroscopy of Multiple Coronary Arteries using Low Osmolar Contrast (ICD-10-PCS; principal; 2017-10-21 11:15)
DX: R00.1 Bradycardia, unspecified (principal); I13.0 Hypertensive heart and chronic kidney disease with heart failure and stage 1 through stage 4 chronic kidney disease, or unspecified chronic kidney disease; I50.43 Acute on chronic combined systolic (congestive) and diastolic (congestive) heart failure; E11.22 Type 2 diabetes mellitus with diabetic chronic kidney disease; Z79.84 Long term (current) use of oral hypoglycemic drugs; G45.9 Transient cerebral ischemic attack, unspecified; N18.3 Chronic kidney disease, stage 3 (moderate); I48.2 Chronic atrial fibrillation; I47.2 Ventricular tachycardia; N28.9 Disorder of kidney and ureter, unspecified; I25.10 Atherosclerotic heart disease of native coronary artery without angina pectoris; Z95.5 Presence of coronary angioplasty implant and graft; Z79.02 Long term (current) use of antithrombotics/antiplatelets; E78.5 Hyperlipidemia, unspecified; Z95.3 Presence of xenogenic heart valve; Z87.891 Personal history of nicotine dependence; Z79.82 Long term (current) use of aspirin; E66.01 Morbid (severe) obesity due to excess calories; Z68.34 Body mass index [BMI] 34.0-34.9, adult
CPT/HCPCS: 70450; 70551; 71045; 78452; 80048; 80053; 81001; 83735; 84484; 85025; 85610; 85730; 93005; 93017; 93454; 93880; 99152; 99153; 99285; A9502; C1769; C1893; J0171; J0461; J1644; J2250; J2785; J7030; Q9967

== ENCOUNTER 2017-11-12 05:25 | Day surgery (SDC) | payer MEDICARE ==
[2017-11-12] VITALS (12 sets, daily range): BP systolic 91–134; BP diastolic 52–83; PULSE 70–87; RESP 16–20; TEMP 97.8–98.8; O2SAT 94–97
[~2017-11-12] VITALS: Ht 182.9 cm; Wt 115.3 kg
[~2017-11-12 05:25] MED LIST changes: +APIX5TAB PO; -ASPI1TAB69 PO; +FERR325T18 PO; -FURO1TAB60 PO; +GLIM1 PO; +HYDR-3516 PO; -LISI10TA3 PO; +MELA3TAB52 PO; -METO50TA PO; +MULTTAB67 PO; +PROS5TAB PO; +REME15TA PO; +SOTA80 PO; +TAMS0.4C4 PO; -TAMS5CAP PO; +TORS1TAB12 PO; +TRAZ1TAB14 PO; +TYLE325T PO
[2017-11-12] MEDS ORDERED: IOHEXOL 350 MG/ML 50 ML BTL (for Cath Lab) OTHER ONE (05:26)
[2017-11-12] MEDS ORDERED: NO Heparin, Lovenox, Coumadin at least 12 hours prior to procedure. PRN (06:00)
[2017-11-12] MEDS ORDERED: VANCOMYCIN 1000 MG/NS 250 ML IV SCH ×2 (06:00)
[2017-11-12] MEDS ORDERED: POVIDONE IODINE 5% (ANTISEPSIS KIT) 4 APPLICATIONS EACH NARE SCH (06:00)
[2017-11-12] MEDS ORDERED: CEFAZOLIN INJ 2,000 MG in SODIUM CHLORIDE 0.9% INJ 100 ML IV SCH (06:00)
[2017-11-12] MEDS ORDERED: MUPIROCIN 2% OINT 1 APPLIC/GM SYR NASAL SCH (06:00)
[2017-11-12] MEDS ORDERED: NS 1000 ML IV SCH (06:00)
[2017-11-12] MEDS ORDERED: CHLORHEXIDINE GLUCONATE 2 % 1 PACK (2 CLOTHS) TOPICAL SCH (06:00)
[2017-11-12] MEDS ORDERED: Hold AM Insulin & AM Hypoglycemic medications in diabetic patients PRN (06:00)
[2017-11-12] MEDS ORDERED: LACTATED RINGER'S 1000 ML IV PRN (06:15)
[2017-11-12] MEDS ORDERED: CHLORHEXIDINE GLUCONATE 2 % 1 PACK (2 CLOTHS) TOPICAL PRN (06:15)
[2017-11-12] MEDS ORDERED: POVIDONE IODINE 5% (ANTISEPSIS KIT) 4 APPLICATIONS EACH NARE PRN (06:15)
[2017-11-12] MEDS ORDERED: COQ-50CA2 PO (06:19)
[2017-11-12 06:21] LABS: AUTOMATED NEUTROPHIL # 4.1 TH/MM3 (1.8-7.7); BASOPHIL % 0.5 % (0.0-2.0); EOSINOPHIL # 0.2 TH/MM3 (0-0.4); EOSINOPHIL % 3.6 % (0.0-4.0); HEMATOCRIT 36.5 % (39.0-51.0); HEMOGLOBIN 11.9 GM/DL (13.0-17.0); LYMPH % 21.3 % (9.0-44.0); LYMPHOCYTE # 1.4 TH/MM3 (1.0-4.8); MEAN CELL VOLUME 98.9 FL (80.0-100.0); MEAN CORPUSCULAR HEMOGLOBIN 32.3 PG (27.0-34.0); MEAN CORPUSCULAR HGB CONC 32.7 % (32.0-36.0); MEAN PLATELET VOLUME 9.2 FL (7.0-11.0); MONO % 12.7 % (0.0-8.0); MONOCYTE # 0.8 TH/MM3 (0-0.9); NEUT % 61.9 % (16.0-70.0); PLATELET COUNT 161 TH/MM3 (150-450); RED BLOOD COUNT 3.69 MIL/MM3 (4.50-5.90); RED CELL DISTRIBUTION WIDTH 15.1 % (11.6-17.2); WHITE BLOOD COUNT 6.6 TH/MM3 (4.0-11.0)
[2017-11-12] MEDS: SODIUM CHLORID 0.9% 500 ML IV PRN ×2 (06:28→08:18)
[2017-11-12 06:32] LABS: BICARBONATE 30.2 MEQ/L (21.0-32.0); CALCIUM 9.9 MG/DL (8.5-10.1); CREATININE 1.43 MG/DL (0.60-1.30)
[2017-11-12 06:37] LABS: PROTHROMBIN TIME - PATIENT 12.9 SEC (9.8-11.6)
[2017-11-12 06:38] LABS: INTERNATIONAL NORMALIZED RATIO 1.3 RATIO
[2017-11-12] MEDS ORDERED: MIDAZOLAM HCL 2 MG/2 ML VIAL ONE (07:00)
[2017-11-12] MEDS ORDERED: VANCOMYCIN 500 MG VIAL ONE (07:44)
[2017-11-12] MEDS ORDERED: LIDOCAINE HCL 2% 50 ML VIAL ONE (07:44)
--- NOTE | 2017-11-12 10:22 | CATHPROC ---
[employer] HIS Report Study Information Study Number Admission Scheduled Start Study Start [id number] Nov 12 2017 5:25AM 11/12/2017 Nov 12 2017 7:09AM [place] Service Cardiac Pacer/ICD Admit Source Facility Department Other [facility] - Agricultural Appraiser Physician and Clinical Staff Initial MD Terry, Norris Applied Statistician Kirstie Urrutia RN Other Anesthesia, NUT BLANKER OPERATOR Recorder Slade RN, Drake Soria, Matilde,SUPERVISOR PUBLIC MESSAGE SERVICE TECH2 Procedures Performed Procedure Location (Site) Vessel Name Lead Insertion Venogram Subclav. Vein (Lft Subclavian Vein Equipment Time Tie Tape Machine Operator Description Size Mfg Part Number Used/Scraped [id number] 07:59 MEDLINE INDUSTRIES SUTURE, STRIP PLUS 1/2" * Used *[id number] 07:59 MEDLINE PACER ADHESIVE, MASTISOL 2/3CC 2/3CC 0523-48 Used 07:59 MEDLINE PACER HAYNES, LIMB * 2530 *[id number] Used [id number] 07:59 MEDLINE PACER PACK, PACER CUSTOM * Used *[id number] 07:59 MEDLINE PACER PEN, SKIN DUAL W/ RULER * Used *[id number] 08:14 GainSpan PACER SAFE SHEATH, FR7, 13CM FR 7 [id number] Used 08:14 Pharmacopeia MEDICAL PACER SAFE SHEATH, FR7, 13CM FR 7 [id number] Used 08:29 NYCOMED OMNIPAQUE, 350 MG, 50ML 50ML [id number] Used [id number] *[id number] SUTURE, 2-0 VICRYL [SH] ([id number]) SUTURE, 3-0 VICRYL [SH] ([id number]) SUTURE, 4-0 MONOCRYL [PS2] (Y496G) [id number] 07:59 BARRETT MEDICAL BLANKET,WARM AIR CCL * Used *[id number] [facility] PAD, ELECTROSURGICAL 07:59 * [id number] *[id number] Used SURGICAL GROUNDING ORANGE LEAD, CAPSURE FIX NOVUS, 4076-45CM 09:06 VITATRON MEDTRONIC 45CM Used 45CM *[id number] LEAD, CAPSURE FIX NOVUS, 4076-52CM 08:52 VITATRON MEDTRONIC 52CM Used 52CM *[id number] PACEMAKER, ADVISA DR MRI 09:33 VITATRON MEDTRONIC OEA-DDDR [id number] Used [place] [employer] [id number] 07:59 ZOLL MEDICAL RACHEAL. / * Used *[id number] Equipment Model, Serial, Lot Number and Expiration Data Description Model Number Serial Number Lot Number Expiration Date LEAD, CAPSURE FIX NOVUS, 45CM 4076-45CM [id number] 08-02-2019 LEAD, CAPSURE FIX NOVUS, 52CM 4076-52CM [id number] 07-18-2019 PACEMAKER, ADVISA DR FERNANDEZ [id number] 01-29-2019 SURESCAN History: Allergies Allergy Reaction NKDA Labs Hgb (g/dl) Hct (%) WBC (l/cumm) Platelets (thousands) 11.60-17.00 35.00-51.00 4.00-11.00 150.00-450.00 11.9 36.5 6.6 161 Glucose (mg/dl) BUN (mg/dl) Creatinine (mg/dl) BUN:Creatinine (1:x) 74.00-106.00 7.00-18.00 0.50-1.30 10.00-20.00 98 26 1.4 18.6 Na (meq/l) K (meq/l) 136.00-145.00 3.50-5.10 142 4.3 INR (PTT:PT) 0.90-1.10 1.3 CPK-MB (ng/ML) 0.50-3.60 Not Drawn Medication Medication Total Dose (Bolus/Oral) Medication Total Dosage/Unit 2% XYLOCAINE 20 mL Medications (Bolus/Oral) Medication Time Given Dosage/Unit Administered By Reason 2% XYLOCAINE 11/12/2017 8:13:10 AM 20 mL Jr Terry 20 mL 2% XYLOCAINE given by Jr Terry in Left shoulder via Subcutaneous. Ordered by Jr Terry . Medication (Drip) Medication Time Given Dosage/Unit Concentration/Unit Diluent (ml) Solution ANCEF 11/12/2017 7:41:55 AM 2 g 2 g ANCEF given by Anesthesia, NUT BLANKER OPERATOR via Peripheral IV. Ordered by Jr Terry. VANCOMYCIN DRIP 11/12/2017 7:41:15 AM 1 g 1 g VANCOMYCIN DRIP given by Anesthesia, NUT BLANKER OPERATOR via Peripheral IV. Ordered by Jr Terry. Chronological Log Time Study Chronological Log 7:36:38 Patient arrived via Bed. 7:36:44 Patient Name, D.O.B, / Armband Verified By R.N. 7:37:51 Consent signed by the physician and the patient and verified by the Agricultural Appraiser staff. 7:38:33 Anesthesia at bedside. Assumes care of patient. 7:40:39 History and physical on the chart or being dictated. 7:40:40 Patient has been NPO for More than 6Hrs. 7:41:15 1 g VANCOMYCIN DRIP given by Anesthesia, NUT BLANKER OPERATOR via Peripheral IV. Ordered by Jr Terry. 7:41:55 2 g ANCEF given by Anesthesia, NUT BLANKER OPERATOR via Peripheral IV. Ordered by Jr Terry. 7:42:25 Pre-op and post- op instructions given; patient acknowledges understanding of instructions. 7:42:30 2% CHLORHEXIDINE GLUCONATE WASH AND NASAL SWIPE DONE PRIOR TO PROCEDURE. 7:45:41 Disposable Defibrillator Pads Placed On Patient. 7:53:34 MD arrived. 7:54:20 Bovie ground pad applied to: abdomen 8:00:58 Table restraints applied according to hospital policy 8:02:10 Left Upper Chest Prepped Times Two. First Sponge And Instrument Count Done 8:06:07 Hypo's:3 hypo's, Sponges:30 sponges, Bovie/scratch:1 bovie/1 scratch Sutures:5, Blades:2, Instruments: 26 Time Out. Correct patient, procedure, procedure equipment, site and side verified with physician present. Time 8:12:30 concurred by MD, individual staff and NUT BLANKER OPERATOR. Time Out #2 - Consents verified, patient in correct position, all results are labled and display ed, safety precautions 8:12:36 taken, antibiotics administered. Time out concurred by MD, individual staff and NUT BLANKER OPERATOR in procedur e 8:13:01 Case Start 8:13:10 20 mL 2% XYLOCAINE given by Jr Terry in Left shoulder via Subcutaneous. Ordered by Jr Payne. 8:15:30 Surgical Incision Made. 8:15:33 A pocket was created at the L Upper Chest. 8:20:16 The Subclav. Vein (Lft was manually injected with 20 cc's of contrast. OMNIPAQUE, 350 MG, 50 ML 50ML used. 8:33:05 The Subclav. Vein (Lft was manually injected with 20 cc's of contrast. OMNIPAQUE, 350 MG, 50 ML 50ML used. 8:43:36 Vascular access was obtained in the Subclav. Vein (Lft. 8:49:46 A SAFE SHEATH, FR7, 13CM FR 7 was advanced into the Subclav. Vein (Lft using the Modified Se castorenainger technique. 8:52:59 A LEAD, CAPSURE FIX NOVUS, 52CM 52CM was inserted and positioned in the RV. 8:53:17 10 RAY ANA LUISA SPONGES ADDED 8:54:11 Lead placement verified under fluoroscopy 8:54:14 The RV lead impedance and threshold being tested. 9:00:45 Lead placement verified under fluoroscopy 9:00:48 The RV lead impedance and threshold being tested. 9:03:29 Lead placement verified under fluoroscopy 9:03:31 The RV lead impedance and threshold being tested. 9:05:16 SHEATH REMOVED 9:07:31 A SAFE SHEATH, FR7, 13CM FR 7 was advanced into the Fem Art (right) using the Modified Yenny nger technique. 9:07:43 A LEAD, CAPSURE FIX NOVUS, 45CM 45CM was inserted and positioned in the RA. 9:08:58 Lead placement verified under fluoroscopy 9:09:08 The Atrial lead impedance and threshold is being tested. 9:19:18 Lead placement verified under fluoroscopy 9:19:21 The Atrial lead impedance and threshold is being tested. 9:24:55 Lead placement verified under fluoroscopy 9:24:58 The Atrial lead impedance and threshold is being tested. 9:30:58 Lead placement verified under fluoroscopy 9:31:03 The Atrial lead impedance and threshold is being tested. 9:31:07 The Atrial lead was sutured to the fascia. 9:45:06 Implant Procedure was performed. 9:45:10 A PPM Implant . (Dual) 9:45:17 1 SUTURE NEEDLE ADDED 9:46:57 Implantable Device card placed in patient's chart. 9:48:35 The RV lead was sutured to the fascia. 9:49:11 Pocket flushed with antibiotic solution 9:50:42 A PACEMAKER, MAGI MAUROSCAN OEA-DDDR was connected and placed in the pocket. Second Sponge And Instrument Count Done by Kirstie Urrutia, BETH. 9:53:25 Hypo's:3 hypo's, Sponges:40 sponges, Bovie/scratch:1 bovie/1 scratch Sutures: 6, Blades:2 10:08:17 Case End 10:08:52 Steri-strips and a sterile dressing applied to site. The Final Sponge And Instrument Count Done by Kirstie Urrutia RN. 10:08:55 Hypo's:3 hypo's, Sponges: 40sponges, Bovie/scratch:1 bovie/1 scratch Sutures: 6, Blades: 2, Instruments: 26 10:11:59 PRESSURE DRESSING APPLIED TO SITE 10:12:20 No case complications noted. 10:12:25 Bedside Report will be given. 10:12:36 DOCU called. Spoke to KOKO 10:13:52 A sling was placed on the affected arm. 10:20:16 Patient moved to stretcher End Study - Contrast Media Used In Study Contrast Total Opened (mL) Total Used (mL) Total Wasted (mL) Omnipaque 50 40 10 End Study - Maximum Contrast Load Max Contrast Load (mL) 402.4 End Study - Radiation Exposure Fluoro Time (minutes) 23.9 End Study - Patient Disposition Complications Transferred To Telemetry Bed
[2017-11-12] MEDS ORDERED: traMADol HCL 50 MG TAB PO PRN (10:30)
[2017-11-12] MEDS ORDERED: BACITRACIN OINT 0.9 GM PKT TOP PRN (10:30)
[2017-11-12] MEDS ORDERED: SODIUM CHLORIDE 0.9% FLUSH 10 ML FLUSH IV FLUSH PRN (10:30)
[2017-11-12] MEDS ORDERED: ACETAMINOPHEN 325 MG TAB PO PRN (10:30)
[2017-11-12] MEDS ORDERED: PILL SPLITTER OTHER PRN (10:30)
--- NOTE | 2017-11-12 10:34 | MP ---
cc: Jr Terry MD DATE OF OPERATION: 11/12/2017 PROCEDURE: Permanent pacemaker implantation. PREOPERATIVE DIAGNOSIS: Symptomatic bradycardia, need for pacing support for antiarrhythmic therapy for ventricular tachycardia. DETAILS OF PROCEDURE: The patient was brought to the cardiac catheterization lab in the fasting state. Sedation was provided by Anesthesia. He received preoperative antibiotics with vancomycin and Ancef. Using 1% lidocaine for local anesthesia, an incision was made parallel to and below the left clavicle. Using blunt and sharp dissection a pocket was fashioned above the pectoralis muscle. Next, I attempted to puncture the left subclavian vein. After several attempts contrast was administered. The patient had altered venous anatomy. Actually a second contrast injection was given as well. With some persistence, I was able to cannulate the vein. I was unable to get a second stick so I used one wire and a sheath to get the 2 wires into the case that way. Through the 7-[place] peel-away sheath, the ventricular lead was inserted into the right ventricle. Using curved and straight stylets, multiple sites were sampled in the right ventricle before a suitable site for sensing and pacing threshold was identified. This was the fifth site sampled. The peel-way sheath was then removed. Over the second guidewire, a 7-[place] peel-away sheath was introduced and through this the atrial lead was inserted. Multiple spots were sampled in the right atrium that had very poor P waves. Stylet was changed to a larger stylet because the right atrium was big. Eventually a very suitable spot was found with good sensing and pacing thresholds. Both leads were secured to the underlying fascia using three 2-0 silk sutures. There was quite a bit of bleeding around the leads. A couple of evuzyb-sl-phews sutures were placed around both leads, which was successful in achieving hemostasis. The wound was irrigated with antibiotic solution. Both leads were then connected to the pacemaker generator, which was positioned in the floor of the pocket with the leads behind it. The generator was secured to the floor of the pocket using a single 2-0 silk suture. The wound was then carefully closed in layers using interrupted 2-0 Vicryl sutures for the deep fascial layer, interrupted 3-0 Vicryl sutures for the subcutaneous layers, followed by running 4-0 Monocryl stitch and the Steri-Strips and a 4 x 4 dressing. The pacemaker is a [employer] [id number], serial number [id number]. The atrial lead is a Medtronic 4076, length 45 cm, serial number [id number] with a P-wave of 2.5 millivolts, slew of 0.7 volts per second, resistance of 396 ohms and a threshold of 0.8 volts. The ventricular lead is a Medtronic 4076, length 52 cm, serial number [id number] with an R-wave of 7.3 millivolts, slew-rate of 2.0 volts per second, resistance of 540 ohms and a threshold of 0.5 volts. Both leads were tested at 10 volts with no diaphragmatic pacing. Chest x-ray is pending. Estimated blood loss was 100 mL. MD MARCELA Avina/AVELINO , 10:15 AM , 10:33 AM
--- NOTE | 2017-11-12 11:02 | RADRPT ---
EXAM DATE/TIME: 11/12/2017 10:39 [facility] COMPARISON: CHEST SINGLE AP, October 18, 2017, 17:21. INDICATIONS : Post pacemaker MEDICAL HISTORY : None. SURGICAL HISTORY : Coronary artery stent. inguinal hernia repair, cystoscopy, aortic valve replacement ENCOUNTER: Initial ACUITY: 1 day PAIN SCORE: 0/10 LOCATION: Bilateral chest FINDINGS: A single view of the chest demonstrates interval placement of a dual-chamber cardiac pacemaker. There is no evidence of pneumothorax. Minimal atelectasis is seen in the bases especially on the left. Heart is mildly enlarged. Median sternotomy wires from previous surgery noted.. CONCLUSION: 1. Satisfactory appearance of cardiac pacemaker. 2. No evidence of pneumothorax. 3. Cardiomegaly with evidence of previous open heart surgery. Terrance Clancy MD on November 12, 2017 at 10:58 Board Certified Radiologist. This report was verified electronically.
[2017-11-12] MEDS ORDERED: ePHEDrine/NS 25 MG/5 ML SYRINGE IV ONE (12:00)
[2017-11-12] MEDS ORDERED: PROPOFOL 200 MG/20 ML AMP IV ONE (12:00)
[2017-11-12] MEDS ORDERED: PHENYLEPH/NS 1000 MCG/10 ML SYR IV ONE (12:00)
[2017-11-12] MEDS ORDERED: ATORVASTATIN 40 MG TAB PO SCH (21:00)
[2017-11-12] MEDS ORDERED: TAMSULOSIN HCL 0.4 MG CAP PO SCH (21:00)
--- NOTE | 2017-11-12 22:12 | EKG ---
Date Performed: 11/12/2017 Time Performed: 06:25:56 PTAGE: 87 years EKG: Probable atrial fibrillation with PVC(s) or aberrant ventricular conduction. Left axis kyler ation Inferior infarct - age undetermined Possible anterior infarct - age undetermined Lateral ST-T c hanges Abnormal ECG PREVIOUS TRACING : 10/21/2017 10.09 Compared to previous tracing, SR no longer present DOCTOR: Bobby Vazquez Interpretating Date/Time 11/12/2017 22:11:25
[2017-11-12] MEDS: SOTALOL HCL 80 MG TAB PO SCH (22:16)
[2017-11-12] MEDS: SODIUM CHLORIDE 0.9% FLUSH 10 ML FLUSH IV FLUSH SCH (22:17)
[2017-11-13] VITALS (12 sets, daily range): BP systolic 100–108; BP diastolic 63–65; PULSE 58–79; RESP 16–18; TEMP 97.1–98.5; O2SAT 94–96
--- NOTE | 2017-11-13 08:25 | PD.CARD.PN ---
Subjective Subjective Remarks no complaints Objective Medications Current Medications Medications (Trade) Dose Ordered Sig/Terese Route Start Time Stop Time Status Last Admin Miscellaneous Information Hold AM Insulin & ... UNSCH PRN .XX 11/12/17 06:00 11/16/17 05:59 Miscellaneous Information NO Heparin, Loven... UNSCH PRN .XX 11/12/17 06:00 11/16/17 05:59 Cefazolin Sodium 2000 mg/Sodium Chloride 120 ml @ 240 mls/hr [employer] IV 11/12/17 06:00 11/15/17 05:59 11/12/17 07:41 Vancomycin HCl 1000 mg/Sodium Chloride 250 ml @ 250 mls/hr [employer] IV 11/12/17 06:00 11/15/17 05:59 11/12/17 07:41 (Bactroban Nasal 2% Oint) 1 applic [employer] NASAL 11/12/17 06:00 11/15/17 05:59 Lactated Ringer's 1,000 ml @ 30 mls/hr Q24H PRN IV 11/12/17 06:15 11/15/17 06:14 Sodium Chloride 500 ml @ 30 mls/hr [id number] PRN IV 11/12/17 06:15 11/15/17 06:14 11/12/17 06:28 (Betadine 5% Antisepsis Kit) 1 applic [employer] PRN EACH NARE 11/12/17 06:15 11/15/17 06:14 11/12/17 06:28 (Chlorhexidine 2% Cloth) 3 pack [employer] PRN TOPICAL 11/12/17 06:15 11/15/17 06:14 11/12/17 06:28 (Tylenol) 650 mg Q4H PRN PO 11/12/17 10:30 (Ultram) 25 mg Q4H PRN PO 11/12/17 10:30 (Bacitracin Oint Packet) 0.9 gm UNSCH PRN TOP 11/12/17 10:30 (NS Flush) 2 ml BID IV FLUSH 11/12/17 21:00 11/12/17 22:17 (NS Flush) 2 ml UNSCH PRN IV FLUSH 11/12/17 10:30 (Pill Splitter) 1 ea UNSCH PRN OTHER 11/12/17 10:30 (Lipitor) 40 mg HS PO 11/12/17 21:00 11/12/17 22:17 (Zyloprim) 100 mg DAILY PO 11/13/17 09:00 (Flomax) 0.4 mg HS PO 11/12/17 21:00 11/12/17 22:17 (Proscar) 5 mg DAILY PO 11/13/17 09:00 (Betapace) 40 mg Q12HR PO 11/12/17 21:00 11/12/17 22:16 Vital Signs / I&O Vital Signs Date Time Temp Pulse Resp B/P (MAP) Pulse Ox O2 Delivery O2 Flow Rate FiO2 11/13/17 07:00 66 11/13/17 07:00 97.1 63 18 108/63 (78) 94 11/13/17 06:00 59 11/13/17 05:00 79 11/13/17 04:00 60 11/13/17 03:00 98.5 79 16 100/65 (77) 96 11/13/17 03:00 79 11/13/17 02:00 68 11/13/17 01:00 78 11/13/17 00:00 66 11/12/17 23:00 77 11/12/17 23:00 98.8 77 20 130/78 (95) 95 11/12/17 22:00 70 11/12/17 21:00 74 11/12/17 20:00 98.2 78 18 110/64 (79) 96 11/12/17 20:00 77 11/12/17 19:00 78 11/12/17 18:00 74 11/12/17 17:00 78 11/12/17 16:00 72 11/12/17 15:00 74 11/12/17 15:00 97.8 76 16 91/52 (65) 97 11/12/17 14:31 74 11/12/17 13:00 97.9 76 19 115/66 (82) 94 11/12/17 10:29 95 Nasal Cannula 2.00 I/O 11/12/17 11/12/17 11/12/17 11/13/17 11/13/17 11/13/17 07:00 15:00 23:00 07:00 15:00 23:00 Intake Total 480 ml 480 ml Output Total 125 ml Balance 355 ml 480 ml Intake Oral 480 ml 480 ml Output Urine Total 125 ml # Voids 5 # Bowel Movements 1 Physical Exam Alert Chest clear Pacer wound looks perfect CV S1S2 RRR 1+ edema CXR OK Await pacer rep eval Imaging Last 48 hours Impressions Chest X-Ray 11/12/17 0000 Signed Impressions: Service Date/Time: Sunday, November 12, 2017 10:39 - CONCLUSION: 1. Satisfactory appearance of cardiac pacemaker. 2. No evidence of pneumothorax. 3. Cardiomegaly with evidence of previous open heart surgery. Terrance Clancy MD Assessment and Plan Problem List: (1) Paroxysmal ventricular tachycardia ICD Codes: I47.2 - Ventricular tachycardia (2) Paroxysmal atrial flutter ICD Codes: I48.92 - Unspecified atrial flutter Plan: overdrive paced yest (3) Coronary artery disease ICD Codes: I25.10 - Atherosclerotic heart disease of [place] coronary artery without angina pectoris (4) History of aortic valve replacement with bioprosthetic valve ICD Codes: Z95.3 - Presence of xenogenic heart valve Plan: stable (5) Bradycardia ICD Codes: R00.1 - Bradycardia, unspecified Plan: resolved with pacemaker (6) Pacemaker ICD Codes: Z95.0 - Presence of cardiac pacemaker Plan: wound/ CXR OK. Awaiting rep check Assessment and Plan Will DC home - resume home meds but add Sotalol 80 bid. Keep F/U appts. Heart healthy diet. Jr Terry MD Nov 13, 2017 08:25
[2017-11-13] MEDS ORDERED: FINASTERIDE 5 MG TAB PO SCH (09:00)
[2017-11-13] MEDS ORDERED: ALLOPURINOL 100 MG TAB PO SCH (09:00)
[2017-11-13] MEDS: SODIUM CHLORIDE 0.9% FLUSH 10 ML FLUSH IV FLUSH SCH (09:00)
[2017-11-13] MEDS: SOTALOL HCL 80 MG TAB PO SCH (09:20)
--- NOTE | 2017-11-13 13:36 | EKG ---
Date Performed: 11/12/2017 Time Performed: 20:36:48 PTAGE: 87 years EK% Atrial pacing Left axis deviation Possible old inferior infarct Possibe anterior infar ct Abnormal ECG Compared to PREVIOUS TRACING , the patient is no longer in atrial flutter. PREVIOUS TRACIN11/13/19 18 06.25 DOCTOR: Jr Terry Interpretating Date/Time 11/13/2017 13:36:29
[2017-11-13] MEDS ORDERED: SOTALOL HCL 80 MG TAB PO SCH (21:00)
== END 2017-11-13 12:09 | disposition home or self-care (01) ==
LOC: HDOC 05:25 → HDIC 05:29 → HCIS 12:58 → HDOC 11-13 12:09
PROVIDERS: ATTEND Internal Medicine Cardiovascular Disease
DX: I49.5 Sick sinus syndrome (principal); I47.2 Ventricular tachycardia; I11.0 Hypertensive heart disease with heart failure; I50.40 Unspecified combined systolic (congestive) and diastolic (congestive) heart failure; I77.9 Disorder of arteries and arterioles, unspecified; I25.10 Atherosclerotic heart disease of native coronary artery without angina pectoris; E78.5 Hyperlipidemia, unspecified; I42.9 Cardiomyopathy, unspecified; I48.91 Unspecified atrial fibrillation; R79.1 Abnormal coagulation profile; Z79.01 Long term (current) use of anticoagulants
CPT/HCPCS: 00530; 33208; 71045; 80048; 85025; 85610; 85730; 93005; C1785; C1898; J0690; J2250; J2370; J3010; J3370; J7040; J7050; C1779; Q9967